=== PATIENT | female | born 1960 | race Hispanic/Latino ===

== ENCOUNTER → 2017-08-26 | Day surgery (SDC) | payer OTHER ==
[2017-08-24 13:39] LABS: ANION GAP 18.9 mmol/L (8-16); BLOOD UREA NITROGEN 11 mg/dL (7-26); BUN/CREATININE RATIO 15 (6-25); CALCIUM 10.2 mg/dL (8.4-10.2); CARBON DIOXIDE 25 mmol/L (22-29); CHLORIDE 99 mmol/L (98-107); CREATININE, SERUM 0.75 mg/dL (0.57-1.11); EST GLOMERULAR FILTRATION RATE > 60 ML/MIN (60-); GLUCOSE 126 mg/dL (74-118); POTASSIUM 3.9 mmol/L (3.5-5.1); SODIUM 139 mmol/L (136-145)
[~2017-08-26] MED LIST: ALPRAZOLAM0.25 M1 PO; ALPRAZOLAM0.5 M1; AMOXICILLIN500 MG PO; ATORVASTATIN CA10 MG PO; AZO95 MG PO; BELLADONNA/OPIUM 60 MG SUPP PR ONE; CLARITHROMYCIN500 MG PO; DEXAMETHASONE SOD PHOS INJ 4 MG/ML VIAL ONE; FENTANYL CITRATE/PF 100MCG/2 ML INJ ONE; HYDROCHLOROTHIA25 MG PO; IOPAMIDOL 610MG/1ML 300 MG/ML VIAL IV ONE; JANUVIA100 MG PO; LEVAQUIN500 MG PO; LEVOFLOXACIN 500MG/D5W 100ML 100 ML IV ONE; LEVOTHYROXINE50 MCG PO; LIDOCAINE HCL 2% LOCAL INJ 5 ML SDV VIAL INJ ONE; METFORMIN HCL500 MG PO; MIDAZOLAM HCL 2 MG/2 ML VIAL ONE; OMEPRAZOLE PO; ONDANSETRON HCL INJ 2 MG/ML VIAL ONE; PROPOFOL IV EMULSION 10 MG/ML 20 ML VIAL ONE; SEVOFLURANE INHAL SOLN 250 ML PEN BTL ONE; VASOTEC5 MG PO
--- NOTE | 2017-08-26 12:26 | Diagnostic Imaging Report ---
PROCEDURE:X-RAY ABDOMEN - KUB COMPARISON:KUB from 04/04/2017, abdominal CT from 06/22/2017. INDICATIONS:PRE-OP, RENAL STONE FINDINGS: A tiny calcification overlying the right inferior renal pole likely corresponds to a tiny nonobstructing stone on noncontrast CT from 06/22/2017. No new calcifications project over the renal shadows, expected course of the ureters or bladder. There is a non-obstructed bowel-gas pattern. There are no acute osseous abnormalities. The lung bases are clear. CONCLUSION: Tiny right inferior pole renal calculus. Dictated by: Ramon Miller M.D. on 08/26/2017 at 12:32 Electronically approved by: Ramon Miller M.D. on 08/26/2017 at 12:32
--- NOTE | 2017-10-04 00:50 | Operative Report ---
DATE OF PROCEDURE: August 26, 2017 PREOPERATIVE DIAGNOSES 1. Right nephrolithiasis. 2. Urinary tract infections. 3. Mixed-type urinary incontinence. POSTOPERATIVE DIAGNOSES 1. Right nephrolithiasis. 2. Urinary tract infections. 3. Mixed-type urinary incontinence. 4. Mild cystocele. 5. Severe rectocele. 6. Atrophic (senile) vaginitis. OPERATIONS PERFORMED: Note these were staged procedures as part of a multistage, multistep process of managing the patient's urolithiasis. 1. Right-sided extracorporeal shock wave lithotripsy (separate procedure performed to treat the right lower lateral kidney stone done from separate approach). 2. Cystourethroscopy with bilateral ureteral catheterization and retrograde ureterography (separate procedure performed for the urinary tract infections). 3. Interpretation of retrograde ureteropyelography. 4. Supervision of fluoroscopy. No radiologist present. 5. Pelvic examination under anesthesia. ANESTHESIA: General. COMPLICATIONS: None. CLINICAL SUMMARY: Tanisha Blanca is a 57-year-old woman with the above preoperative diagnoses. She is brought for the above procedures. She is aware of the risks of bleeding, infection, injury to adjacent structures, need for additional procedures and elected to proceed. OPERATIVE PROCEDURE IN DETAIL: Informed consent was verified. Tanisha Blanca was properly identified, taken to the operating room, placed on the lithotripsy table in supine position. Anesthesia was uneventfully begun. The patient's right lower calyceal stone was localized utilizing the biplanar fluoroscopy. A total of 3000 shocks were delivered with fragmentation noted fluoroscopically. The patient was then carefully and gently repositioned in the dorsal lithotomy position with all pressure points well padded. Her genitalia were prepared and draped in usual sterile fashion. The 22.5-Swiss cystoscope sheath with obturator in place was atraumatically inserted into the patient's urethra and the bladder was drained. Panendoscopy of the urinary bladder revealed no suspicious gross lesions, no tumors, no stones and no diverticula. Normally positioned and configured ureteral orifices were identified. Ureteral catheter was used to cannulate each ureter and retrograde ureteropyelography was performed. Interpretation of retrograde ureteropyelography: Contrast was instilled in retrograde fashion bilaterally. There were no tumors. There were no suspicious lesions. There were no diverticula. Some filling defects were noted in the right lower calyx that was lateral consistent with the lithotripsy procedure and the debris and blood clots it creates. Nevertheless, there was unobstructed drainage observed fluoroscopically from the right hand side. The patient's bladder was then drained. The cystoscope was withdrawn. Pelvic examination under anesthesia revealed a grade 1 cystocele and grade 4 rectocele. There was atrophic (senile) vaginitis present. No suspicious mucosal lesions were identified that could be obviously seen and there were no abnormal palpable pelvic masses that could be appreciated. The patient was then uneventfully reversed from anesthesia and taken to the recovery room in stable condition. There were no complications during the procedure. She tolerated the procedure well. Explicit postoperative instructions were given and we will follow the patient up in the office. Job#: [id number] GE cc:ZACHARY VALVERDE MD
== END | disposition home or self-care (01) ==
LOC: OR 10:52
PROVIDERS: ATTEND Urology
DX: N20.0 Calculus of kidney (principal); N39.46 Mixed incontinence; N39.0 Urinary tract infection, site not specified; N81.10 Cystocele, unspecified; N81.6 Rectocele; N95.2 Postmenopausal atrophic vaginitis; N32.81 Overactive bladder; R81 Glycosuria; E11.9 Type 2 diabetes mellitus without complications; I10 Essential (primary) hypertension; E03.9 Hypothyroidism, unspecified; K21.9 Gastro-esophageal reflux disease without esophagitis; E66.9 Obesity, unspecified; F41.9 Anxiety disorder, unspecified; Z01.810 Encounter for preprocedural cardiovascular examination; Z01.812 Encounter for preprocedural laboratory examination; Z68.33 Body mass index [BMI] 33.0-33.9, adult
CPT/HCPCS: 36415 ×2; 50590; 74000; 80048; 82948; 93005; C1758; J1100; J1956; J2001; J2250; J2405; Q9967

== ENCOUNTER 2017-11-05 17:49 | Emergency (ER) | payer OTHER ==
[~2017-11-05] VITALS: Ht 154.9 cm; Wt 74.8 kg
[~2017-11-05 17:49] MED LIST changes: -BELLADONNA/OPIUM 60 MG SUPP PR ONE; -DEXAMETHASONE SOD PHOS INJ 4 MG/ML VIAL ONE; -FENTANYL CITRATE/PF 100MCG/2 ML INJ ONE; -IOPAMIDOL 610MG/1ML 300 MG/ML VIAL IV ONE; -LEVOFLOXACIN 500MG/D5W 100ML 100 ML IV ONE; -LIDOCAINE HCL 2% LOCAL INJ 5 ML SDV VIAL INJ ONE; -MIDAZOLAM HCL 2 MG/2 ML VIAL ONE; -ONDANSETRON HCL INJ 2 MG/ML VIAL ONE; -PROPOFOL IV EMULSION 10 MG/ML 20 ML VIAL ONE; -SEVOFLURANE INHAL SOLN 250 ML PEN BTL ONE
[2017-11-05] MEDS ORDERED: SODIUM CHLORIDE 0.9% 1000ML 1,000 ML IV STA (18:37)
[2017-11-05] MEDS ORDERED: ONDANSETRON HCL INJ 2 MG/ML VIAL IV STA (18:37)
[2017-11-05] MEDS ORDERED: MORPHINE SULFATE 4 MG/ML SYR IV STA (18:37)
[2017-11-05 19:03] LABS: BILIRUBIN,URINE NEGATIVE (NEGATIVE); KETONES,URINE NEGATIVE (NEGATIVE); LEUKOCYTE ESTERASE ,URINE 2+ (NEGATIVE); NITRITE,URINE NEGATIVE (NEGATIVE); PROTEIN,URINE DIPSTICK NEGATIVE (NEGATIVE); URINE UROBILINOGEN 0.2 mg/dL (0.2 - 1)
[2017-11-05 19:06] LABS: CLARITY,URINE CLEAR (CLEAR); COLOR,URINE YELLOW (YELLOW)
[2017-11-05 19:33] LABS: EPITHELIAL CELLS,URINE MODERATE /LPF
[2017-11-05 19:34] LABS: RBC,URINE 0-5 /HPF (0-5)
[2017-11-05 19:35] LABS: BACTERIA,URINE RARE /HPF
--- NOTE | 2017-11-05 20:09 | Diagnostic Imaging Report ---
EXAMINATION: CHEST SINGLE (PORTABLE) INDICATION: Left chest pain COMPARISON: 06/16/2016 FINDINGS: TUBES and LINES: None. LUNGS: Lungs are well inflated. Lungs are clear. There is no evidence of pneumonia or pulmonary edema. PLEURA: No pleural effusion or pneumothorax. HEART AND MEDIASTINUM: The cardiomediastinal silhouette is unremarkable. BONES AND SOFT TISSUES: No acute osseous lesion. Soft tissues are unremarkable. UPPER ABDOMEN: No free air under the diaphragm. IMPRESSION: No acute thoracic abnormality. Signed by: Dr. Auugstin Colin M.D. on 11/05/2017 8:06 PM
[2017-11-05] MEDS ORDERED: SODIUM CHLORIDE 0.9% 1000ML 1,000 ML ONE (21:51)
--- NOTE | 2017-11-05 21:52 | Diagnostic Imaging Report ---
EXAM: Right Upper Quadrant Ultrasound INDICATION: Abdominal pain COMPARISON: None. TECHNIQUE: Transverse and longitudinal images of the right upper abdomen were obtained. FINDINGS: Liver: Size: 18.6 cm in the right midclavicular line, large Appearance: Increased echogenicity, smooth contour Mass: No focal masses Gallbladder: Stones/Sludge: None Wall: 0.2 cm Appearance: No wall thickening, pericholecystic fluid or hydrops. Sonographic Soto's Sign: Negative Bile Ducts: Intrahepatic Ducts: No dilatation Extrahepatic Ducts: Common bile duct measures 0.8 cm, prominent Pancreas: Visualized portions of the pancreatic head, neck and proximal body are normal. Kidneys: Length: Right 11.7 cm Echogenicity: Normal Collecting System: No hydronephrosis Stone: None Cyst/Mass: None Vessels: Aorta: Visualized portions are normal Inferior Vena Cava: Visualized portions are normal Main Portal Vein: 0.9 cm, normal size with hepatopetal flow. Free Fluid: No ascites or pleural effusion IMPRESSION: 1. Hepatomegaly and diffuse hepatic steatosis. 2. Prominent CBD measuring 0.8 cm. Correlation with bilirubin levels is recommended Signed by: Dr. Augustin Colin M.D. on 11/05/2017 9:49 PM
[2017-11-05] MEDS ORDERED: ONDANSETRON HCL INJ 2 MG/ML VIAL ONE (21:53)
[2017-11-05 22:09] LABS: BASOPHILS # (AUTO) 0.1 (0.0-0.1); BASOPHILS % 0.3 % (0.0-1.0); EOSINOPHILS # (AUTO) 0.5 (0.0-0.4); EOSINOPHILS % 3.3 % (0.0-6.0); HEMATOCRIT 44.9 % (34.2-44.1); HEMOGLOBIN 14.7 g/dL (12.0-16.0); LYMPHOCYTES # (AUTO) 4.3 (1.0-3.2); MEAN CORPUSCULAR HEMOGLOBIN 28.4 pg (28-32); MEAN CORPUSCULAR HGB CONC 32.7 g/dL (31-35); MEAN CORPUSCULAR VOLUME 86.7 fL (81-99); MONOCYTES % 6.6 % (4.4-11.3); NEUTROPHILS # (AUTO) 8.9 (2.1-6.9); NEUTROPHILS % 60.3 % (38.7-80.0); PLATELET COUNT 260 x10e3/uL (140-360); RED BLOOD COUNT 5.18 x10e6/uL (3.6-5.1); RED CELL DISTRIBUTION WIDTH 13.2 % (11.7-14.4)
[2017-11-05] MEDS ORDERED: CEFTRIAXONE SOD 1 GM VIAL IV ONE (22:15)
[2017-11-05 22:30] LABS: ALANINE AMINOTRANSFERASE 19 IU/L (0-55); ALBUMIN/GLOBULIN RATIO 1.2 (0.8-2.0); ALKALINE PHOSPHATASE 85 IU/L (40-150); AMYLASE 40 U/L (25-125); BLOOD UREA NITROGEN 10 mg/dL (7-26); BUN/CREATININE RATIO 16 (6-25); CALCIUM 9.3 mg/dL (8.4-10.2); CARBON DIOXIDE 20 mmol/L (22-29); CHLORIDE 105 mmol/L (98-107); CREATINE KINASE 41 IU/L (29-168); CREATININE, SERUM 0.61 mg/dL (0.57-1.11); EST GLOMERULAR FILTRATION RATE > 60 ML/MIN (60-); GLUCOSE 161 mg/dL (74-118); LIPASE 27 U/L (8-78); SODIUM 138 mmol/L (136-145)
--- NOTE | 2017-11-05 22:51 | Diagnostic Imaging Report ---
EXAM: CT Abdomen and Pelvis WITHOUT contrast INDICATION: Flank pain, suspicious for stone COMPARISON: 09/30/2017 TECHNIQUE: Abdomen and pelvis were scanned utilizing a multidetector helical scanner from the lung base to the pubic symphysis without administration of IV contrast. Absence of intravenous contrast decreases sensitivity for detection of focal lesions and vascular pathology. Coronal and sagittal reformations were obtained. Stone protocol is performed. IV CONTRAST: None. ORAL CONTRAST: None RADIATION DOSE: Total DLP: 575.83 mGy*cm Estimated effective dose: (DLP x 0.015 x size factor) mSv COMPLICATIONS: None FINDINGS: LINES and TUBES: None. LOWER THORAX: Unremarkable HEPATOBILIARY: No focal hepatic lesions. No biliary ductal dilation. GALLBLADDER: No radio-opaque stones or sludge. No wall thickening. SPLEEN: No splenomegaly. PANCREAS: No focal masses or ductal dilatation. ADRENALS: No adrenal nodules KIDNEYS/URETERS: No hydronephrosis. No cystic or solid mass lesions. Punctate calcific densities in the inferior pole of the right kidney best seen on series 2, image 44. The left renal collecting system appear unremarkable GI TRACT: No abnormal distention, wall thickening, or evidence of bowel obstruction. Appendix is not clearly identified. There is however no fat stranding or adenopathy in the right lower quadrant to suggest appendicitis. PELVIC ORGANS/BLADDER: Unremarkable. LYMPH NODES: No lymphadenopathy. VESSELS: Unremarkable. PERITONEUM / RETROPERITONEUM: No free air or fluid. BONES: There are mild degenerative changes in the thoracolumbar spine. SOFT TISSUES: Left breast nodule at approximately 6:00 medial inferior quadrant . IMPRESSION: 1. Punctate stones in the inferior renal collecting system of the right kidney. No hydronephrosis. These findings are stable since prior examination 2. Left breast nodule. Correlation with most recent mammogram and breast ultrasound is recommended Signed by: Dr. Augustin Colin M.D. on 11/05/2017 10:48 PM
[2017-11-06] MEDS ORDERED: MORPHINE SULFATE 5 MG/ML VIAL ONE (00:54)
== END 2017-11-06 02:11 | disposition home or self-care (01) ==
LOC: ER 17:49
DX: R10.13 Epigastric pain (principal); R10.12 Left upper quadrant pain; R07.89 Other chest pain; N30.90 Cystitis, unspecified without hematuria; N64.59 Other signs and symptoms in breast
CPT/HCPCS: 36415; 71010; 74176; 76705; 80053; 81001; 82150; 82550; 82553; 83690; 84484; 85025; 87086; 93005; 99284; J0696; J2270; J2405; J7030; 71045

== ENCOUNTER → 2017-11-28 | Outpatient (CLI) | payer OTHER ==
--- NOTE | 2017-11-28 13:05 | Diagnostic Imaging Report ---
PROCEDURE: X-RAY UPPER GI SERIES WITH SMALL BOWEL FOLLOW-THROUGH COMPARISON: None. INDICATIONS: UPPER ABDOMINAL PAIN FINDINGS: The patient was given air crystals, thick barium and thin barium to drink in upright and prone positions. Multiple images of the esophagus, stomach and duodenum were obtained. The patient was given additional barium to drink and sequential images of the abdomen were obtained through 2 hours. Spot images of the small bowel and terminal ileum were then obtained. The esophagus is normal in appearance without evidence of dysmotility, stricture or mucosal irregularity. There is gastroesophageal reflux. The stomach is normal without evidence of intrinsic mucosal or extrinsic abnormality. Duodenal bulb is normal. There is a moderate sized duodenal diverticulum from the second portion of the duodenum measuring 2.3 cm. Small bowel motility and caliber are normal. There is no evidence of mass or mucosal abnormality. The terminal ileum is normal. Fluoroscopy time: 2.6 minutes Total dose: 170.77 mGy CONCLUSION: 1. Mild amount of gastroesophageal reflux. 2. Moderate size duodenal diverticulum. 3. Small bowel follow-through is normal. Junior Durant D.O. Dictated by: Junior Durant D.O. on 11/28/2017 at 13:15 Electronically approved by: Junior Durant D.O. on 11/28/2017 at 13:15
== END ==
LOC: DX 07:20
PROVIDERS: ATTEND Internal Medicine Gastroenterology
DX: K59.00 Constipation, unspecified (principal)
CPT/HCPCS: 74249

== ENCOUNTER → 2018-02-09 | Outpatient (CLI) | payer OTHER ==
--- NOTE | 2018-02-09 14:45 | Diagnostic Imaging Report ---
PROCEDURE:X-RAY ABDOMEN - KUB COMPARISON:CT abdomen/pelvis 11/05/17. INDICATIONS:CALCULUS OF KIDNEY FINDINGS: Bowel gas pattern: Unremarkable. There is barium outlining a diverticulum in the descending colon. No dilated bowel loops. Calcifications: No calcifications over the renal shadows or along the expected course of the ureters. The punctate calculi in the lower pole left kidney on CT are not visible by x-ray. No pelvic calcifications. Organomegaly: None. Bones/soft tissues: Unremarkable. CONCLUSION: No renal calculi. Dictated by: Kermit Steven M.D. on 02/09/2018 at 14:46 Electronically approved by: Kermit Steven M.D. on 02/09/2018 at 14:46
== END ==
LOC: RAD 13:38
PROVIDERS: ATTEND Urology
DX: N20.0 Calculus of kidney (principal)
CPT/HCPCS: 74018

== ENCOUNTER → 2018-07-27 | Outpatient (CLI) | payer OTHER ==
--- NOTE | 2018-07-27 23:12 | Diagnostic Imaging Report ---
EXAM: ABDOMEN-1VIEW (KUB), supine INDICATION: Gross hematuria COMPARISON: KUB February 09, 2018 FINDINGS: LINES/TUBES: None BOWEL PATTERN: No evidence for obstruction. SOFT TISSUES: No abnormal calcifications. BONES: No acute findings. IMPRESSION: Normal abdominal x-ray. Signed by: Dr. Rosette Sterling M.D. on 07/27/2018 11:09 PM
== END ==
LOC: RAD 16:34
PROVIDERS: ATTEND Urology
DX: R31.0 Gross hematuria (principal)
CPT/HCPCS: 74018

== ENCOUNTER → 2018-08-11 | Day surgery (SDC) | payer OTHER ==
[2018-08-10 12:50] LABS: ANION GAP 13.7 mmol/L (8-16); BLOOD UREA NITROGEN 12 mg/dL (7-26); BUN/CREATININE RATIO 18 (6-25); CALCIUM 9.9 mg/dL (8.4-10.2); CARBON DIOXIDE 24 mmol/L (22-29); CHLORIDE 95 mmol/L (98-107); CREATININE, SERUM 0.68 mg/dL (0.57-1.11); EST GLOMERULAR FILTRATION RATE > 60 ML/MIN (60-); GLUCOSE 145 mg/dL (74-118); POTASSIUM 3.7 mmol/L (3.5-5.1); SODIUM 129 mmol/L (136-145)
[~2018-08-11] MED LIST changes: +BACTRIM DS TAB1 EACH PO; +BELLADONNA/OPIUM 60 MG SUPP PR ONE; +DEXAMETHASONE SOD PHOS INJ 4 MG/ML VIAL ONE; +FENTANYL CITRATE/PF 100MCG/2 ML INJ ONE; +GENTAMICIN 80MG/NS 100 ML 100 ML IV ONE; +IOPAMIDOL 610MG/1ML 300 MG/ML VIAL IV ONE; +LIDOCAINE HCL 2% LOCAL INJ 5 ML SDV VIAL INJ ONE; +MACROBID 100 M100 MG; +MIDAZOLAM HCL 2 MG/2 ML VIAL ONE; +ONDANSETRON HCL INJ 2 MG/ML VIAL ONE; +PROPOFOL IV EMULSION 10 MG/ML 20 ML VIAL ONE; +SEVOFLURANE INHAL SOLN 250 ML PEN BTL ONE
--- OUTSIDE RECORDS SUMMARY | 2018-08-11 08:02 | XMS REPORT ---
Author Author Yulia Carrington [facility] [place] eClinicalWorks Address Unknown Phone Unavailable Care Team Providers Care Water Treatment Operator Name Role Phone Yulia Carrington Unavailable Allergies, Adverse Reactions, Alerts Substance Reaction Event Type N.K.D.A. Info Not Available Non Drug Allergy Encounters Encounter Location Date allergies [facility], [facility] February 17, 2016 allergies [facility], [facility] January 14, 2014 Wants to see you [facility], [facility] February 09, 2016 allergies [facility], [facility] February 10, 2016 Problems Problem Type Condition ICD-9 Code Onset Dates Condition Status Problem Pruritus, unspecified L29.9 Active Assessment Rash and other nonspecific skin eruption R21 Active Problem Rash and other nonspecific skin eruption R21 Active Medications Medication Code System Code Instructions Start Date End Date Status Dosage Enalapril [facility] 50860-*188-03 5 mg orally daily Active one tab Montelukast Sodium [facility] [address]-62 10 MG Orally Once a day February 10, 2016 Active 1 tablet in the evening Alprazolam Unknown 0 0.25mg every 4 hours Active 1 Tablet Levothyroxine Unknown 0 50 mg Active Unknown Atorvastatin Calcium [facility] [address]-98 10 MG Orally Once a day Active 1 tablet Sandra Allergy [facility] 523[address]859 180 MG Orally Once OR TWICE a day February 10, 2016 Active 1 tablet Desoximetasone [facility] [address]-09 0.25 % Externally Once a day Active 1 application to affected area Cetirizine HCl [facility] [address]-12 10 MG Orally Once a day December 28, 2013 Active 1 tablet Metformin HCl [facility] [address]-94 500 MG Orally Twice a day Active 1 tablet with meals Social History Social History Element Qualifiers Date Reported Occupation/School (grade): . [employer] February 19, 2016 Type of chloe in bedroom . [employer] February 19, 2016 Window coverings in bedroom . Drapes, Wood blinds February 19, 2016 Home sliding door? . Yes February 19, 2016 Hobbies . Working Out,playing bingo February 19, 2016 HVAC . Central air and heat, Ceiling Fan or Box Fan February 19, 2016 Home water damage? . No February 19, 2016 Bedroom furniture: . Box spring mattress February 19, 2016 Age of your home: . 51-75 years February 19, 2016 Increased allergy sx: animals? . No February 19, 2016 Pets: . none February 19, 2016 Secondary tobacco exposure? . No February 19, 2016 Tobacco Use: . Are you a:: never smoker February 19, 2016 Vital Signs Date/Time: February 17, 2016 Blood Pressure Diastolic 83 mm Hg Blood Pressure Systolic 124 mm Hg Temperature 97.5 F Height 60.45 in Cardiac Monitoring Heart Rate 81 /min Summary Purpose eClinicalWorks Submission
--- OUTSIDE RECORDS SUMMARY | 2018-08-11 08:02 | XMS REPORT ---
Author Author Yulia Carrington eClinicalWorks Address Unknown Phone Unavailable Care Team Providers Care Hasher Machine Operator Name Role Phone Yulia Carrington Unavailable Allergies, Adverse Reactions, Alerts Substance Reaction Event Type N.K.D.A. Info Not Available Non Drug Allergy Encounters Encounter Location Date allergies [facility], [facility] February 17, 2016 Swelling [facility], [facility] March 08, 2016 allergies [facility], [facility] March 08, 2016 Skin concerns [facility], [facility] February 24, 2016 allergies [facility], [facility] January 14, 2014 Wants to see you [facility], [facility] February 09, 2016 allergies [facility], [facility] February 10, 2016 allergies [facility], [facility] February 19, 2016 Problems Problem Type Condition ICD-9 Code Onset Dates Condition Status Problem Pruritus, unspecified L29.9 Active Assessment Rash and other nonspecific skin eruption R21 Active Problem Rash and other nonspecific skin eruption R21 Active Medications Medication Code System Code Instructions Start Date End Date Status Dosage Montelukast Sodium [facility] [address]-56 10 MG Orally Once a day February 10, 2016 Active 1 tablet in the evening Metformin HCl [facility] [address]-88 500 MG Orally Twice a day Active 1 tablet with meals Desoximetasone [facility] [address]-25 0.25 % Externally Once a day Active 1 application to affected area Levothyroxine Unknown 0 50 mg Active Unknown Enalapril [facility] 21666-*188-03 5 mg orally daily Active one tab Cetirizine HCl [facility] [address]-14 10 MG Orally Once a day December 28, 2013 Active 1 tablet Sandra Allergy [facility] 45608-[address]776 180 MG Orally Once OR TWICE a day February 10, 2016 Active 1 tablet Atorvastatin Calcium [facility] [address]-56 10 MG Orally Once a day Active 1 tablet Alprazolam Unknown 0 0.25mg every 4 hours Active 1 Tablet Social History Social History Element Qualifiers Date Reported 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 [employer] March 08, 2016 Window coverings in bedroom . Drapes, Wood blinds March 08, 2016 Home sliding door? . Yes March 08, 2016 Hobbies . Working Out,playing bingo March 08, 2016 HVAC . Central air and heat, Ceiling Fan or Box Fan March 08, 2016 Home water damage? . No March 08, 2016 Bedroom furniture: . Box spring mattress March 08, 2016 Age of your home: . 51-75 years March 08, 2016 Increased allergy sx: animals? . No March 08, 2016 Pets: . none March 08, 2016 Secondary tobacco exposure? . No March 08, 2016 Tobacco Use: . Are you a:: never smoker March 08, 2016 Vital Signs Date/Time: February 19, 2016 Blood Pressure Diastolic 88 mm Hg Blood Pressure Systolic 128 mm Hg Temperature 98.0 F Cardiac Monitoring Heart Rate 91 /min Summary Purpose eClinicalWorks Submission
--- OUTSIDE RECORDS SUMMARY | 2018-08-11 08:02 | XMS REPORT ---
Author Author Celestina Tadeo Organization eClinicalWorks Address Unknown Phone Unavailable Care Team Providers Care Technical Research Scientist Name Role Phone Celestina Tadeo CP Unavailable Allergies No Known Allergies Problems Problem Type Condition Code Onset Dates Condition Status Problem Vitamin D deficiency E55.9 Active Problem Pain in right hand M79.641 Active Problem Osteoarthritis involving multiple joints on both sides of body M15.9 Active Problem Diabetes E11.9 Active Problem Vitamin D deficiency 268.9 Active Problem Hypertension I10 Active Medications No Known Medications Results No Known Results Summary Purpose eClinicalWorks Submission
--- OUTSIDE RECORDS SUMMARY | 2018-08-11 08:02 | XMS REPORT ---
Author Author Yulia Carrington eClinicalWorks Address Unknown Phone Unavailable Care Team Providers Care Ultrasonic Hand Solderer Name Role Phone Yulia Carrington Unavailable Allergies, Adverse Reactions, Alerts Substance Reaction Event Type Bacitracin erythema and dry skin: contact allergy Drug Allergy Encounters Encounter Location Date allergies [facility], [facility] February 17, 2016 Swelling [facility], [facility] March 08, 2016 allergies [facility], [facility] March 08, 2016 allergies [facility], [facility] January 14, 2014 Wants to see you [facility], [facility] February 09, 2016 allergies [facility], [facility] February 10, 2016 Problems Problem Type Condition ICD-9 Code Onset Dates Condition Status Problem Rash and other nonspecific skin eruption R21 Active Problem Pruritus, unspecified L29.9 Active Problem Anaphylactic reaction due to shellfish (crustaceans), initial encounter T78.02XA Active Assessment Anaphylactic reaction due to shellfish (crustaceans), initial encounter T78.02XA Active Medications Medication Code System Code Instructions Start Date End Date Status Dosage Metformin HCl [facility] [address]-90 500 MG Orally Twice a day Active 1 tablet with meals Alprazolam Unknown 0 0.25mg every 4 hours Active 1 Tablet Desoximetasone [facility] [address]-94 0.25 % Externally Once a day Active 1 application to affected area Sandra Allergy [facility] 508[address]84 180 MG Orally Once OR TWICE a day February 10, 2016 Active 1 tablet Benadryl Allergy Childrens [facility] [address]-79 12.5 MG/5ML Orally every 6 hrs as needed March 08, 2016 Active 4 teaspoons Enalapril [facility] 82628-*188-03 5 mg orally daily Active one tab Levothyroxine Unknown 0 50 mg Active Unknown EpiPen 2-Olegario [facility] [address]-49 0.3 MG/0.3ML Injection March 08, 2016 Active as directed Cetirizine HCl [facility] [address]-94 10 MG Orally Once a day December 28, 2013 Active 1 tablet Montelukast Sodium [facility] [address]-86 10 MG Orally Once a day February 10, 2016 Active 1 tablet in the evening Medrol (Olegario) [facility] [address]-79 4 MG Orally March 08, 2016 Active as directed Atorvastatin Calcium [facility] [address]-35 10 MG Orally Once a day Active 1 tablet Social History Social History Element Qualifiers Date [...] smoker March 08, 2016 Vital Signs Date/Time: March 08, 2016 Blood Pressure Systolic 130 mm Hg Temperature 98.4 F Height 60.45 in Cardiac Monitoring Heart Rate 71 /min Blood Pressure Diastolic 83 mm Hg Summary Purpose eClinicalWorks Submission
--- OUTSIDE RECORDS SUMMARY | 2018-08-11 08:02 | XMS REPORT ---
Author Author Yulia Carrington [facility] eClinicalWorks Address Unknown Phone Unavailable Care Team Providers Care Civil Engineer Land Development Name Role Phone Yulia Carrington Unavailable Allergies, Adverse Reactions, Alerts Substance Reaction Event Type N.K.D.A. Info Not Available Non Drug Allergy Encounters Encounter Location Date allergies [facility], [facility] January 14, 2014 Wants to see you [facility], [facility] February 09, 2016 [facility] February 10, 2016 Problems Problem Type Condition ICD-9 Code Onset Dates Condition Status Problem Pruritus, unspecified L29.9 Active Assessment Rash and other nonspecific skin eruption R21 Active Problem Rash and other nonspecific skin eruption R21 Active Assessment Pruritus, unspecified L29.9 Active Medications Medication Code System Code Instructions Start Date End Date Status Dosage Montelukast Sodium [facility] [address]-42 10 MG Orally Once a day February 10, 2016 Active 1 tablet in the evening Atorvastatin Calcium [facility] [address]-29 10 MG Orally Once a day Active 1 tablet Metformin HCl [facility] [address]-82 500 MG Orally Twice a day Active 1 tablet with meals Levothyroxine Unknown 0 50 mg Active Unknown Cetirizine HCl [facility] [address]-00 10 MG Orally Once a day December 28, 2013 Active 1 tablet Desoximetasone [facility] [address]-87 0.25 % Externally Once a day Active 1 application to affected area Enalapril [facility] 59301-*188-03 5 mg orally daily Active one tab Alprazolam Unknown 0 0.25mg every 4 hours Active 1 Tablet Sandra Allergy [facility] 64343-44655 180 MG Orally Once OR TWICE a day February 10, 2016 Active 1 tablet Social History Social History Element Qualifiers Date Reported Occupation/School (grade): . [employer] February 11, 2016 Type of chloe in bedroom . [employer] February 11, 2016 Window coverings in bedroom . Drapes, Wood blinds February 11, 2016 Home sliding door? . Yes February 11, 2016 Hobbies . Working Out,playing bingo February 11, 2016 HVAC . Central air and heat, Ceiling Fan or Box Fan February 11, 2016 Home water damage? . No February 11, 2016 Bedroom furniture: . Box spring mattress February 11, 2016 Age of your home: . 51-75 years February 11, 2016 Increased allergy sx: animals? . No February 11, 2016 Pets: . none February 11, 2016 Secondary tobacco exposure? . No February 11, 2016 Tobacco Use: . Are you a:: never smoker February 11, 2016 Vital Signs Date/Time: February 10, 2016 Blood Pressure Systolic 126 mm Hg Temperature 98.7 F Height 59.67 in Cardiac Monitoring Heart Rate 78 /min Blood Pressure Diastolic 80 mm Hg Summary Purpose eClinicalWorks Submission
--- OUTSIDE RECORDS SUMMARY | 2018-08-11 08:02 | XMS REPORT ---
Author Author Yulia Carrington [facility] eClinicalWorks Address Unknown Phone Unavailable Care Team Providers Care First Front Ventilator Name Role Phone Yulia Carrington Unavailable Encounters Encounter Location Date allergies [facility], [facility] January 14, 2014 Wants to see you [facility], [facility] February 09, 2016 Problems Problem Type Condition ICD-9 Code Onset Dates Condition Status Problem Urticartia-unspecified 708.9 Active Problem Rhinitis - Chronic 472.0 Active Problem pruritic disorder 698.9 Active Problem food allergy 693.1 Active Problem Hypothyroidism 244.9 Active Problem Diabetes 249.00 Active Social History Social History Element Qualifiers Date Reported Occupation/School (grade): . [employer] January 14, 2014 Type of chloe in bedroom . Hardwood January 14, 2014 Window coverings in bedroom . Drapes, Wood blinds January 14, 2014 Home sliding door? . Yes January 14, 2014 Hobbies . Working Out,playing bingo January 14, 2014 HVAC . Central air and heat, Ceiling Fan or Box Fan January 14, 2014 Home water damage? . No January 14, 2014 Bedroom furniture: . Box spring mattress January 14, 2014 Age of your home: . 51-75 years January 14, 2014 Increased allergy sx: animals? . No January 14, 2014 Pets: . none January 14, 2014 Secondary tobacco exposure? . No January 14, 2014 Tobacco Use: . Are you a:: never smoker January 14, 2014 Summary Purpose eClinicalWorks Submission
--- OUTSIDE RECORDS SUMMARY | 2018-08-11 08:02 | XMS REPORT ---
Author Author Yulia Carrintgon [facility] eClinicalWorks Address Unknown Phone Unavailable Care Team Providers Care Physiology Teacher Name Role Phone Yulia Carrington Unavailable Encounters [facility] Problems Problem Type Condition ICD-9 Code Onset Dates Condition Status Assessment food allergy 693.1 Active Problem Urticartia-unspecified 708.9 Active Problem Rhinitis - Chronic 472.0 Active Problem pruritic disorder 698.9 Active Problem food allergy 693.1 Active Assessment Urticartia-unspecified 708.9 Active Problem Hypothyroidism 244.9 Active Problem Diabetes 249.00 Active Medications Medication Code System Code Instructions Start Date End Date Status Dosage Atorvastatin Calcium [facility] [address]-60 10 MG Orally Once a day Active 1 tablet Desoximetasone [facility] [address]-17 0.25 % Externally Once a day Active 1 application to affected area Metformin HCl [facility] [address]-18 500 MG Orally Twice a day Active 1 tablet with meals Cetirizine HCl [facility] [address]-81 10 MG Orally Once a day December 28, 2013 Active 1 tablet Social History Social History Element Qualifiers Date Reported 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 Hardwood December 28, 2013 Window coverings in bedroom . Drapes, Wood blinds December 28, 2013 Home sliding door? . Yes December 28, 2013 Hobbies . Working Out,playing bingo December 28, 2013 HVAC . Central air and heat, Ceiling Fan or Box Fan December 28, 2013 Home water damage? . No December 28, 2013 Bedroom furniture: . Box spring mattress December 28, 2013 Age of your home: . 51-75 years December 28, 2013 Increased allergy sx: animals? . No December 28, 2013 Pets: . none December 28, 2013 Secondary tobacco exposure? . No December 28, 2013 Tobacco Use: . Are you a:: never smoker December 28, 2013 Vital Signs Date/Time: January 14, 2014 Blood Pressure Systolic 126 mm Hg Temperature 97.6 F Weight 84.09 lbs Height 60.45 inches Cardiac Monitoring Heart Rate 78 Beats per Minute Blood Pressure Diastolic 78 mm Hg Summary Purpose eClinicalWorks Submission
--- OUTSIDE RECORDS SUMMARY | 2018-08-11 08:02 | XMS REPORT ---
Author Author Yulia Carrington [facility] eClinicalWorks Address Unknown Phone Unavailable Care Team Providers Care Debt Counselor Name Role Phone Yulia Carrington Unavailable Encounters Encounter Location Date allergies [facility], [facility] February 17, 2016 Swelling [facility], [facility] March 08, 2016 allergies [facility], [facility] January 14, 2014 Wants to see you [facility], [facility] February 09, 2016 allergies [facility], [facility] February 10, 2016 Problems Problem Type Condition ICD-9 Code Onset Dates Condition Status Problem Rash and other nonspecific skin eruption R21 Active Problem Pruritus, unspecified L29.9 Active Problem Anaphylactic reaction due to shellfish (crustaceans), initial encounter T78.02XA Active Social History Social History Element Qualifiers [...] you a:: never smoker March 08, 2016 Summary Purpose eClinicalWorks Submission
--- OUTSIDE RECORDS SUMMARY | 2018-08-11 08:02 | XMS REPORT ---
Author Author Yulia Carrington eClinicalWorks Address Unknown Phone Unavailable Care Team Providers Care Job Recruiter Name Role Phone Yulia Carrington Unavailable Allergies, Adverse Reactions, Alerts Substance Reaction Event Type Bacitracin erythema and dry skin: contact allergy Drug Allergy Encounters Encounter Location Date allergies [facility], [facility] February 17, 2016 Swelling [facility], [facility] March 08, 2016 allergies [facility], [facility] March 08, 2016 Skin concerns [facility], [facility] February 24, 2016 allergies [facility], [facility] January 14, 2014 Wants to see you [facility], [facility] February 09, 2016 allergies [facility], [facility] February 10, 2016 allergies [facility], [facility] March 22, 2016 allergies [facility], [facility] February 19, 2016 Waiting for call back [facility], [facility] March 11, 2016 Problems Problem Type Condition ICD-9 Code Onset Dates Condition Status Assessment Other allergic rhinitis J30.89 Active Assessment Allergic contact dermatitis due to cosmetics L23.2 Active Assessment Anaphylactic reaction due to shellfish (crustaceans), subsequent encounter T78.02XD Active Problem Allergic contact dermatitis due to cosmetics L23.2 Active Problem Anaphylactic reaction due to shellfish (crustaceans), subsequent encounter T78.02XD Active Problem Allergic contact dermatitis due to drugs in contact with skin L23.3 Active Problem Pruritus, unspecified L29.9 Active Assessment Allergic contact dermatitis due to drugs in contact with skin L23.3 Active Problem Anaphylactic reaction due to shellfish (crustaceans), initial encounter T78.02XA Active Problem Rash and other nonspecific skin eruption R21 Active Medications Medication Code System Code Instructions Start Date End Date Status Dosage Benadryl [facility] [address]-86 12.5 MG/5ML Orally every 6 hrs as needed March 08, 2016 Active 4 teaspoons Cetirizine HCl [facility] [address]-10 10 MG Orally Once a day December 28, 2013 March 22, 2016 Inactive 1 tablet Levothyroxine Unknown 0 50 mg Active Unknown Enalapril [facility] 10674-*188-03 5 mg orally daily Active one tab Medrol (Olegario) [facility] [address]-40 4 MG Orally March 08, 2016 March 22, 2016 Inactive as directed Sandra Allergy [facility] [address]106 180 MG Orally Once OR TWICE a day February 10, 2016 Active 1 tablet Desoximetasone [facility] [address]-98 0.25 % Externally Once a day March 22, 2016 Inactive 1 application to affected area Atorvastatin Calcium [facility] [address]-57 10 MG Orally Once a day Active 1 tablet Metformin HCl [facility] [address]-40 500 MG Orally Twice a day Active 1 tablet with meals Alprazolam Unknown 0 0.25mg every 4 hours Active 1 Tablet EpiPen 2-Olegario [facility] [address]-55 0.3 MG/0.3ML Injection March 08, 2016 Active as directed Montelukast Sodium [facility] [address]-32 10 MG Orally Once a day February 10, 2016 Active 1 tablet in the evening Social History Social History Element Qualifiers Date Reported 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 [employer] March 22, 2016 Window coverings in bedroom . Drapes, Wood blinds March 22, 2016 Home sliding door? . Yes March 22, 2016 Hobbies . Working Out,playing bingo March 22, 2016 HVAC . Central air and heat, Ceiling Fan or Box Fan March 22, 2016 Home water damage? . No March 22, 2016 Bedroom furniture: . Box spring mattress March 22, 2016 Age of your home: . 51-75 years March 22, 2016 Increased allergy sx: animals? . No March 22, 2016 Pets: . none March 22, 2016 Secondary tobacco exposure? . No March 22, 2016 Tobacco Use: . Are you a:: never smoker March 22, 2016 Vital Signs Date/Time: March 22, 2016 Blood Pressure Diastolic 75 mm Hg Blood Pressure Systolic 120 mm Hg Temperature 97.7 F Height 60.45 in Cardiac Monitoring Heart Rate 65 /min Summary Purpose eClinicalWorks Submission
--- OUTSIDE RECORDS SUMMARY | 2018-08-11 08:02 | XMS REPORT ---
Author Author Yulia Carrington [facility] eClinicalWorks Address Unknown Phone Unavailable Care Team Providers Care Folding Rules Printing Machine Operator Name Role Phone Yulia Carrington Unavailable Encounters Encounter Location Date allergies [facility], [facility] February 17, 2016 Swelling [facility], [facility] March 08, 2016 allergies [facility], [facility] March 08, 2016 Skin concerns [facility], [facility] February 24, 2016 allergies [facility], [facility] January 14, 2014 Wants to see you [facility], [facility] February 09, 2016 allergies [facility], [facility] February 10, 2016 allergies [facility], [facility] February 19, 2016 Waiting for call back [facility], [facility] March 11, 2016 Problems Problem Type Condition [...]
--- OUTSIDE RECORDS SUMMARY | 2018-08-11 08:02 | XMS REPORT ---
Author Author Yulia Carrington eClinicalWorks Address Unknown Phone Unavailable Care Team Providers Care Php Consultant Name Role Phone Yulia Carrington Unavailable Encounters Encounter Location Date allergies [facility], [facility] February 17, 2016 Swelling [facility], [facility] March 08, 2016 allergies [facility], [facility] March 08, 2016 Skin concerns [facility], [facility] February 24, 2016 allergies [facility], [facility] January 14, 2014 Other [facility], [facility] March 22, 2016 Wants to see you [facility], [facility] February 09, 2016 allergies [facility], [facility] February 10, 2016 allergies [facility], [facility] March 22, 2016 allergies [facility], [facility] February 19, 2016 Waiting for call back [facility], [facility] March 11, 2016 Problems Problem Type Condition ICD-9 Code Onset Dates Condition Status Problem Allergic contact dermatitis due to cosmetics L23.2 Active Problem Anaphylactic reaction due to shellfish (crustaceans), subsequent encounter T78.02XD Active Problem Allergic contact dermatitis due to drugs in contact with skin L23.3 Active Problem Pruritus, unspecified L29.9 Active Problem Anaphylactic reaction due to shellfish (crustaceans), initial encounter T78.02XA Active Problem Rash and other nonspecific skin eruption R21 Active Social History Social History Element Qualifiers [...] you a:: never smoker March 22, 2016 Summary Purpose eClinicalWorks Submission
--- OUTSIDE RECORDS SUMMARY | 2018-08-11 08:02 | XMS REPORT ---
Author Author Celestina Tadeo Organization eClinicalWorks Address Unknown Phone Unavailable Care Team Providers Care Transportation Technician Name Role Phone Celestina Tadeo CP Unavailable Allergies, Adverse Reactions, Alerts Substance Reaction Event Type N.K.D.A. Info Not Available Non Drug Allergy Problems Problem Type Condition Code Onset Dates Condition Status Assessment Sicca M35.00 Active Assessment Osteoarthritis involving multiple joints on both sides of body M15.9 Active Assessment Vitamin D deficiency E55.9 Active Assessment Counseling NOS Z71.9 Active Problem Vitamin D deficiency E55.9 Active Problem Pain in right hand M79.641 Active Problem Osteoarthritis involving multiple joints on both sides of body M15.9 Active Problem Diabetes E11.9 Active Assessment Right medial knee pain M25.561 Active Problem Vitamin D deficiency 268.9 Active Problem Hypertension I10 Active Medications Medication Code System Code Instructions Start Date End Date Status Dosage Vivlodex ND 95422709794 10 MG Orally Once a day prn with food Active 1 capsule Metformin HCl ND 62471026488 500 MG Orally Twice a day Active 1 tablet with meals Meloxicam ND 03395654952 7.5 MG Orally bid Active 1 tab(s) with food as needed Ergocalciferol ND 30154192038 11427 UNIT Orally once weekly Active 1 capsule Alprazolam ND 38343839477 0.25 MG Orally Three times a day Active 1 tablet Enalapril Maleate ND 70957376539 5 MG Orally Active not defined Levothyroxine Sodium ND 32282806827 50 MCG Orally Once a day Active 1 tablet Atorvastatin Calcium ND 61948500259 10 MG Orally Once a day Active 1 tablet Vitamin D (Ergocalciferol) [facility] 80229451796 50,000UNT Active TAKE ONE CAPSULE BY MOUTH ONCE A WEEK Vital Signs Date/Time: Jun 05, 2018 Height 61 in Blood Pressure Diastolic 78 mm Hg Blood Pressure Systolic 134 mm Hg Weight 165 lbs Results No Known Results Summary Purpose eClinicalWorks Submission
--- OUTSIDE RECORDS SUMMARY | 2018-08-11 08:02 | XMS REPORT ---
Author Author Yulia Carrington eClinicalWorks Address Unknown Phone Unavailable Care Team Providers Care Physiotherapist'S Assistant Name Role Phone Yulia Carrington Unavailable Allergies, Adverse Reactions, Alerts Substance Reaction Event Type N.K.D.A. Info Not Available Non Drug Allergy Encounters Encounter Location Date allergies [facility], [facility] February 17, 2016 Swelling [facility], [facility] March 08, 2016 allergies [facility], [facility] March 08, 2016 Skin concerns [facility], [facility] February 24, 2016 allergies [facility], [facility] January 14, 2014 Wants to see you [facility], [facility] February 09, 2016 allergies [facility], [facility] February 10, 2016 allergies [facility], [facility] February 19, 2016 Problems Problem Type Condition ICD-9 Code Onset Dates Condition Status Problem Pruritus, unspecified L29.9 Active Assessment Rash and other nonspecific skin eruption R21 Active Problem Rash and other nonspecific skin eruption R21 Active Medications Medication Code System Code Instructions Start Date End Date Status Dosage Metformin HCl [facility] [address]-87 500 MG Orally Twice a day Active 1 tablet with meals Sandra Allergy [facility] [address]99 180 MG Orally Once OR TWICE a day February 10, 2016 Active 1 tablet Montelukast Sodium [facility] [address]-85 10 MG Orally Once a day February 10, 2016 Active 1 tablet in the evening Levothyroxine Unknown 0 50 mg Active Unknown Atorvastatin Calcium [facility] [address]-03 10 MG Orally Once a day Active 1 tablet Desoximetasone [facility] [address]-27 0.25 % Externally Once a day Active 1 application to affected area Cetirizine HCl [facility] [address]-50 10 MG Orally Once a day December 28, 2013 Active 1 tablet Alprazolam Unknown 0 0.25mg every 4 hours Active 1 Tablet Enalapril [facility] 26747-*188-03 5 mg orally daily Active one tab Social History Social History Element Qualifiers Date [...] March 08, 2016 Vital Signs Date/Time: February 24, 2016 Blood Pressure Systolic 116 mm Hg Temperature 97.5 F Height 60.45 in Cardiac Monitoring Heart Rate 86 /min Blood Pressure Diastolic 78 mm Hg Summary Purpose eClinicalWorks Submission
--- OUTSIDE RECORDS SUMMARY | 2018-08-11 08:02 | XMS REPORT | Continuity of Care Document ---
Author Author [facility] Interface Address Unknown Phone Unavailable Problems Problem Status Onset Date Classification Date Reported Comments Source Vitamin D deficiency Active Diagnosis 06/08/2018 Celest[facility] Tadeo Pain in right hand Active Problem 06/08/2018 Celestina Tadeo Osteoarthritis involving multiple joints on both sides of body Active Diagnosis 06/08/2018 Celest[facility] Tadeo Diabetes Active Problem 06/08/2018 Cel[facility]ina Tadeo Vitamin D deficiency Active Problem 06/08/2018 Celestina Tadeo Hypertension Active Problem 06/08/2018 Celestina Tadeo Urticartia-unspecified Active Problem 02/10/2016 [facility] Rhinitis - Chronic Active Problem 02/10/2016 [facility] pruritic disorder Active Problem 02/10/2016 [facility] food allergy Active Problem 02/10/2016 [facility] Hypothyroidism Active Problem 02/10/2016 [facility] Diabetes Active Problem 02/10/2016 [facility] Rash and other nonspecific skin eruption Active Problem 04/09/2016 [facility] Pruritus, unspecified Active Problem 04/09/2016 [facility] Anaphylactic reaction due to shellfish , initial encounter Active Problem 04/09/2016 [facility] Sicca Active Diagnosis 06/08/2018 Celestina Tadeo Counseling NOS Active Diagnosis 06/08/2018 Celestina Tadeo Right medial knee pain Active Diagnosis 06/08/2018 Celestina Tadeo Allergic contact dermatitis due to drugs in contact with skin Active Problem 04/09/2016 [facility] Allergic contact dermatitis due to cosmetics Active Problem 04/09/2016 [facility] Unspecified adverse effect of drug or medicament, initial encounter Active Diagnosis 04/09/2016 [facility] Anaphylactic reaction due to shellfish , subsequent encounter Active Problem 04/09/2016 [facility] Other allergic rhinitis Active Diagnosis 03/23/2016 [facility] Medications Medication Details Route Status Patient Instructions Ordering Provider Order Date Source Desoximetasone 1 application to affected area Externally No Longer Active 0.25 % Externally Once a day [facility] 03/22/2016 [facility] Benadryl Allergy Childrens 4 teaspoons Orally Active 12.5 MG/5ML Orally every 6 hrs as needed [facility] 03/08/2016 [facility] EpiPen 2-Olegario as directed Injection Active 0.3 MG/0.3ML Injection [facility] 03/08/2016 [facility] Medrol (Olegario) as directed Orally No Longer Active 4 MG Orally [facility] 03/08/2016 [facility] Sandra Allergy 1 tablet Orally Active 180 MG Orally Once OR TWICE a day [facility] 02/10/2016 [facility] Montelukast Sodium 1 tablet in the evening Orally Active 10 MG Orally Once a day [facility] 02/10/2016 [facility] Cetirizine HCl 1 tablet Orally No Longer Active 10 MG Orally Once a day [facility] 12/28/2013 [facility] Cetirizine HCl 1 tablet Orally Active 10 MG Orally Once a day [facility] 12/28/2013 [facility] Metformin HCl 1 tablet with meals Orally Active 500 MG Orally Twice a day [facility] Alprazolam 1 Tablet NA Active 0.25mg every 4 hours [facility] Desoximetasone 1 application to affected area Externally Active 0.25 % Externally Once a day [facility] Enalapril one tab orally Active 5 mg orally daily [facility] Levothyroxine Unknown NA Active 50 mg [facility] Atorvastatin Calcium 1 tablet Orally Active 10 MG Orally Once a day [facility] Desoximetasone 1 application to affected area Externally Active 0.25 % Externally Once a day [facility] Vivlodex 1 capsule Orally Active 10 MG Orally Once a day prn with food Najam Celestina Najam Metformin HCl 1 tablet with meals Orally Active 500 MG Orally Twice a day Najam Celestina Najam Meloxicam 1 tab(s) with food as needed Orally Active 7.5 MG Orally bid Najam Celestina Najam Ergocalciferol 1 capsule Orally Active 51490 UNIT Orally once weekly Najam Celestina Najam Alprazolam 1 tablet Orally Active 0.25 MG Orally Three times a day Najam Celestnia Najam Enalapril Maleate not defined Orally Active 5 MG Orally Shwetha Tadeo Levothyroxine Sodium 1 tablet Orally Active 50 MCG Orally Once a day Shwetha Tadeo Atorvastatin Calcium 1 tablet Orally Active 10 MG Orally Once a day Shwetha Tadeo Vitamin D (Ergocalciferol) TAKE ONE CAPSULE BY MOUTH ONCE A WEEK NA Active 50,000UNT Shwetha Tadeo HydrOXYzine HCl 1 tablet as needed Orally Active 25 MG Orally every 8 hrs [facility] Allergies, Adverse Reactions, Alerts Substance Category Reaction Severity Reaction type Status Date Reported Comments Source Bacitracin Adverse Reaction erythema and dry skin: contact allergy Adverse Reaction Active 04/01/2016 [facility] Adverse Reaction Info Not Available Adverse Reaction Active 06/05/2018 [facility] Nasalenam Immunizations Immunization Date Given Site Status Last Updated Comments Source Results Order Name Results Value Reference Range Date Interpretation Comments Source Vital Signs Vital Sign Value Date Comments Source Height 61 06/05/2018 Celestina Najam Diastolic (mm Hg) 78 06/05/2018 [facility] Najam Systolic (mm Hg) 134 06/05/2018 [facility] Najam Weight 165 06/05/2018 [facility] Najam Diastolic (mm Hg) 69 04/01/2016 [facility] Systolic (mm Hg) 104 04/01/2016 [facility] Temperature Oral (F) 97.5 F 04/01/2016 [facility] Height 60.45 04/01/2016 [facility] Heart Rate 82 04/01/2016 [facility] Diastolic (mm Hg) 75 03/22/2016 [facility] Systolic (mm Hg) 120 03/22/2016 [facility] Temperature Oral (F) 97.7 F 03/22/2016 [facility] Height 60.45 03/22/2016 [facility] Heart Rate 65 03/22/2016 [facility] Systolic (mm Hg) 130 03/08/2016 [facility] Temperature Oral (F) 98.4 F 03/08/2016 [facility] Height 60.45 03/08/2016 [facility] Heart Rate 71 03/08/2016 [facility] Diastolic (mm Hg) 83 03/08/2016 [facility] Systolic (mm Hg) 116 02/24/2016 [facility] Temperature Oral (F) 97.5 F 02/24/2016 [facility] Height 60.45 02/24/2016 [facility] Heart Rate 86 02/24/2016 [facility] Diastolic (mm Hg) 78 02/24/2016 [facility] Diastolic (mm Hg) 88 02/19/2016 [facility] Systolic (mm Hg) 128 02/19/2016 [facility] Temperature Oral (F) 98.0 F 02/19/2016 [facility] Heart Rate 91 02/19/2016 [facility] Diastolic (mm Hg) 83 02/17/2016 [facility] Systolic (mm Hg) 124 02/17/2016 [facility] Temperature Oral (F) 97.5 F 02/17/2016 [facility] Height 60.45 02/17/2016 [facility] Heart Rate 81 02/17/2016 [facility] Systolic (mm Hg) 126 02/10/2016 [facility] Temperature Oral (F) 98.7 F 02/10/2016 [facility] Height 59.67 02/10/2016 [facility] Heart Rate 78 02/10/2016 [facility] Diastolic (mm Hg) 80 02/10/2016 [facility] Systolic (mm Hg) 126 01/14/2014 [facility] Temperature Oral (F) 97.6 F 01/14/2014 [facility] Weight 84.09 01/14/2014 [facility] Height 60.45 01/14/2014 [facility] Heart Rate 78 01/14/2014 [facility] Diastolic (mm Hg) 78 01/14/2014 [facility] Encounters Location Location Details Encounter Type Encounter Number Reason For Visit Attending Provider ADM Date DC Date Status Source [facility], [facility] allergies [id number] 01/14/2014 01/14/2014 [facility] allergies [id number] 01/14/2014 01/14/2014 [facility] allergies [id number] 01/14/2014 01/14/2014 [facility] allergies [id number] 01/14/2014 01/14/2014 [facility] allergies [id number] 01/14/2014 01/14/2014 [facility] allergies [id number] 01/14/2014 01/14/2014 [facility] allergies [id number] 01/14/2014 01/14/2014 [facility] allergies [id number] 01/14/2014 01/14/2014 [facility] allergies [id number] 01/14/2014 01/14/2014 [facility] allergies [id number] 01/14/2014 01/14/2014 [facility] allergies [id number] 01/14/2014 01/14/2014 [facility] allergies [id number] 01/14/2014 01/14/2014 [facility] allergies [id number] 01/14/2014 01/14/2014 [facility] allergies [id number] 01/14/2014 01/14/2014 [facility] Wants to see you [id number] 02/09/2016 02/09/2016 [facility] Wants to see you [id number] 02/09/2016 02/09/2016 [facility] Wants to see you [id number] 02/09/2016 02/09/2016 [facility] Wants to see you [id number] 02/09/2016 02/09/2016 [facility] Wants to see you [id number] 02/09/2016 02/09/2016 [facility] Wants to see you [id number] 02/09/2016 02/09/2016 [facility] Wants to see you [id number] 02/09/2016 02/09/2016 [facility] Wants to see you [id number] 02/09/2016 02/09/2016 [facility] Wants to see you [id number] 02/09/2016 02/09/2016 [facility] Wants to see you [id number] 02/09/2016 02/09/2016 [facility] Wants to see you [id number] 02/09/2016 02/09/2016 [facility] Wants to see you [id number] 02/09/2016 02/09/2016 [facility] Wants to see you [id number] 02/09/2016 02/09/2016 [facility] allergies [id number] 02/10/2016 02/10/2016 [facility], [facility] allergies [id number] 02/10/2016 02/10/2016 [facility] allergies [id number] 02/10/2016 02/10/2016 [facility] allergies [id number] 02/10/2016 02/10/2016 [facility], [facility] allergies [id number] 02/10/2016 02/10/2016 [facility] allergies [id number] 02/10/2016 02/10/2016 [facility] allergies [id number] 02/10/2016 02/10/2016 [facility] allergies [id number] 02/10/2016 02/10/2016 [facility] allergies [id number] 02/10/2016 02/10/2016 [facility] allergies [id number] 02/10/2016 02/10/2016 [facility] allergies [id number] 02/10/2016 02/10/2016 [facility] allergies [id number] 02/10/2016 02/10/2016 [facility] allergies [id number] 02/17/2016 02/17/2016 [facility], [facility] allergies [id number] 02/17/2016 02/17/2016 [facility], [facility] allergies [id number] 02/17/2016 02/17/2016 [facility] allergies [id number] 02/17/2016 02/17/2016 [facility], [facility] allergies [id number] 02/17/2016 02/17/2016 [facility] allergies [id number] 02/17/2016 02/17/2016 [facility], [facility] allergies [id number] 02/17/2016 02/17/2016 [facility] allergies [id number] 02/17/2016 02/17/2016 [facility] allergies [id number] 02/17/2016 02/17/2016 [facility] allergies [id number] 02/17/2016 02/17/2016 [facility], [facility] allergies [id number] 02/17/2016 02/17/2016 [facility] [id number] 02/19/2016 02/19/2016 [facility] allergies [id number] 02/19/2016 02/19/2016 [facility] allergies [id number] 02/19/2016 02/19/2016 [facility] allergies [id number] 02/19/2016 02/19/2016 [facility] allergies [id number] 02/19/2016 02/19/2016 [facility] allergies [id number] 02/19/2016 02/19/2016 [facility], [facility] allergies [id number] 02/19/2016 02/19/2016 [facility] allergies [id number] 02/19/2016 02/19/2016 [facility] Skin concerns [id number] 02/24/2016 02/24/2016 [facility] Skin concerns [id number] 02/24/2016 02/24/2016 [facility] Skin concerns [id number] 02/24/2016 02/24/2016 [facility] Skin concerns [id number] 02/24/2016 02/24/2016 [facility] Skin concerns [id number] 02/24/2016 02/24/2016 [facility] Skin concerns [id number] 02/24/2016 02/24/2016 [facility] Skin concerns [id number] 02/24/2016 02/24/2016 [facility] Skin concerns [id number] 02/24/2016 02/24/2016 [facility] Swelling [id number] 03/08/2016 03/08/2016 [facility] Swelling [id number] 03/08/2016 03/08/2016 [facility] Swelling [id number] 03/08/2016 03/08/2016 [facility] Swelling [id number] 03/08/2016 03/08/2016 [facility] Swelling [id number] 03/08/2016 03/08/2016 [facility] Swelling [id number] 03/08/2016 03/08/2016 [facility] Swelling [id number] 03/08/2016 03/08/2016 [facility] Swelling [id number] 03/08/2016 03/08/2016 [facility] Swelling [id number] 03/08/2016 03/08/2016 [facility] Swelling [id number] 03/08/2016 03/08/2016 [facility] allergies [id number] 03/08/2016 03/08/2016 [facility] allergies [id number] 03/08/2016 03/08/2016 [facility] allergies [id number] 03/08/2016 03/08/2016 [facility] allergies [id number] 03/08/2016 03/08/2016 [facility] allergies [id number] 03/08/2016 03/08/2016 [facility] allergies [id number] 03/08/2016 03/08/2016 [facility] allergies [id number] 03/08/2016 03/08/2016 [facility] allergies [id number] 03/08/2016 03/08/2016 [facility] allergies [id number] 03/08/2016 03/08/2016 [facility] Waiting for call back [id number] 03/11/2016 03/11/2016 [facility] Waiting for call back [id number] 03/11/2016 03/11/2016 [facility] Waiting for call back [id number] 03/11/2016 03/11/2016 [facility] Waiting for call back [id number] 03/11/2016 03/11/2016 [facility] Waiting for call back [id number] 03/11/2016 03/11/2016 [facility] Waiting for call back [id number] 03/11/2016 03/11/2016 [facility] allergies [id number] 03/22/2016 03/22/2016 [facility] allergies [id number] 03/22/2016 03/22/2016 [facility] allergies [id number] 03/22/2016 03/22/2016 [facility] allergies [id number] 03/22/2016 03/22/2016 [facility] allergies [id number] 03/22/2016 03/22/2016 [facility] Other [id number] 03/22/2016 03/22/2016 [facility] Other [id number] 03/22/2016 03/22/2016 [facility] Other [id number] 03/22/2016 03/22/2016 [facility] Other [id number] 03/22/2016 03/22/2016 [facility], [facility] Waiting for call back [id number] 04/01/2016 04/01/2016 [facility], [facility] Waiting for call back [id number] 04/01/2016 04/01/2016 [facility], [facility] Waiting for call back [id number] 04/01/2016 04/01/2016 [facility], [facility] Payment [id number] 04/01/2016 04/01/2016 [facility], [facility] Payment [id number] 04/01/2016 04/01/2016 [facility], [facility] allergies [id number] 04/01/2016 04/01/2016 [facility] Procedures Procedure Code Date Perfomer Comments Source
--- OUTSIDE RECORDS SUMMARY | 2018-08-11 08:03 | XMS REPORT ---
Author Author Yulia Carrington [facility] eClinicalWorks Address Unknown Phone Unavailable Care Team Providers Care Postal Carrier Name Role Phone Yulia Carrington Unavailable Encounters Encounter Location Date allergies [facility], [facility] February 17, 2016 Swelling [facility], [facility] March 08, 2016 allergies [facility], [facility] March 08, 2016 Skin concerns [facility], [facility] February 24, 2016 allergies [facility], [facility] January 14, 2014 Other [facility], [facility] March 22, 2016 Wants to see you [facility], [facility] February 09, 2016 Waiting for call back [facility], [facility] April 01, 2016 allergies [facility], [facility] February 10, 2016 allergies [facility], [facility] March 22, 2016 allergies [facility], [facility] February 19, 2016 Waiting for call back [facility], [facility] March 11, 2016 Problems Problem Type Condition ICD-9 Code Onset Dates Condition Status Problem Allergic contact dermatitis due to drugs in contact with skin L23.3 Active Problem Allergic contact dermatitis due to cosmetics L23.2 Active Problem Unspecified adverse effect of drug or medicament, initial encounter T88.7XXA Active Problem Rash and other nonspecific skin eruption R21 Active Problem Pruritus, unspecified L29.9 Active Problem Anaphylactic reaction due to shellfish (crustaceans), subsequent encounter T78.02XD Active Problem Anaphylactic reaction due to shellfish (crustaceans), initial encounter T78.02XA Active Social History Social History Element Qualifiers Date Reported Occupation/School (grade): . [employer] April 01, 2016 Type of chloe in bedroom . [employer] April 01, 2016 Window coverings in bedroom . Drapes, Wood blinds April 01, 2016 Home sliding door? . Yes April 01, 2016 Hobbies . Working Out,playing bingo April 01, 2016 HVAC . Central air and heat, Ceiling Fan or Box Fan April 01, 2016 Home water damage? . No April 01, 2016 Bedroom furniture: . Box spring mattress April 01, 2016 Age of your home: . 51-75 years April 01, 2016 Increased allergy sx: animals? . No April 01, 2016 Pets: . none April 01, 2016 Secondary tobacco exposure? . No April 01, 2016 Tobacco Use: . Are you a:: never smoker April 01, 2016 Summary Purpose eClinicalWorks Submission
--- OUTSIDE RECORDS SUMMARY | 2018-08-11 08:03 | XMS REPORT ---
Author Author Yulia Carrington [facility] eClinicalWorks Address Unknown Phone Unavailable Care Team Providers Care Gas Singer Name Role Phone Yulia Carrington Unavailable Encounters Encounter Location Date allergies [facility], [facility] February 17, 2016 Swelling [facility], [facility] March 08, 2016 allergies [facility], [facility] March 08, 2016 Skin concerns [facility], [facility] February 24, 2016 allergies [facility], [facility] January 14, 2014 Wants to see you [facility], [facility] February 09, 2016 allergies [facility], [facility] February 10, 2016 allergies [facility], [facility] March 22, 2016 allergies [facility], [facility] February 19, 2016 Waiting for call back [facility], [facility] March 11, 2016 Payment [facility], [facility] April 01, 2016 Other [facility], [facility] March 22, 2016 Waiting for call back [facility], [facility] April 01, 2016 Problems Problem Type Condition ICD-9 Code [...]
--- OUTSIDE RECORDS SUMMARY | 2018-08-11 08:03 | XMS REPORT ---
Author Author [facility] Address Unknown Phone Unavailable Care Team Providers Care Tool And Die Assembler Name Role Phone VICK SOLORZANO Unavailable Unavailable ALEXANDRIA FERNANDEZ Unavailable Unavailable Boby LEES Unavailable Unavailable Problems This patient has no known problems. Allergies, Adverse Reactions, Alerts This patient has no known allergies or adverse reactions. Medications This patient has no known medications. Results Test Description Test Time Test Comments Text Results Atomic Results Result Comments ABDOMEN-1VIEW (B) 2018-07-27 23:04:00 [place] [address] Patient Name: TAMY RODRÍGUEZ MR #: [id number] : 1960 Age/Sex: 58/F Req #: [id number] Adm Physician: Ordered by: VICK SOLORZANO MD Report #: [id number] Location: [facility] Room/Bed: Procedure: [id number] DX/ABDOMEN-1VIEW (KU) Exam Date: 07/27/18 Exam Time: 1700 REPORT STATUS: Signed EXAM: ABDOMEN-1VIEW (KUB), supine INDICATION: Gross hematuria COMPARISON: KUB February 09, 2018 FINDINGS: LINES/TUBES: None BOWEL PATTERN: No evidence for obstruction. SOFT TISSUES: No abnormal calcifications. BONES: No acute findings. IMPRESSION: Normal abdominal x-ray. Signed by: Dr. Gema Sterling M.D. on 07/27/2018 11:09 PM Dictated By: GEMA STERLING MD 08 Transcribed By: SHANTI on 07/27/182308 COPY TO: VICK SOLORZANO MD ABDOMEN-1VIEW (KUB) [place] [address] Patient Name: TAMY RODRÍGUEZ MR #: [id number] : 1960 Age/Sex: 57/F Req #: [id number] Adm Physician: Ordered by: VICK SOLORZANO MD Report #: [id number] Location: [facility] Room/Bed: Procedure: [id number] DX/ABDOMEN-1VIEW (KUB) Exam Date: 02/09/18 Exam Time: 1345 REPORT STATUS: Signed PROCEDURE: X-RAY ABDOMEN - KUB COMPARISON: CT abdomen/pelvis 11/05/17. INDICATIONS: CALCULUS OF KIDNEY FINDINGS: Bowel gas pattern: Unremarkable. There is barium outlining a diverticulum in the descending colon. No dilated bowel loops. Calcifications: No calcifications over the renal shadows or along the expected course of the ureters. The punctate calculi in the lower pole left kidney on CT are not vi sible by x-ray. No pelvic calcifications. Organomegaly: None. Bones/soft tissues: Unremarkable. CONCLUSION: No renal calculi. Dictated by: Huey Hernandez M.D. on 02/09/2018 at 14:46 Electronically approved by: Huey Hernandez M.D. on 02/09/2018 at 14:46 Dictated By: HUEY HERNANDEZ MD 45 Transcribed By: BHAVIK on 02/09/181445 COPY TO: VICK SOLORZANO MD UPPER GI W/SMALL BOW [place] [address] Patient Name: TAMY RODRÍGUEZ MR #: [id number] : 1960 Age/Sex: 57/F Req #: [id number] Adm Physician: Ordered by: ALEXANDRIA FERNANDEZ MD Report #: [id number] Location: DX Room/Bed: Procedure: [id number] DX/UPPER GI W/SMALL BOW Exam Date: 11/28/17 Exam Time: 0720 REPORT STATUS: Signed PROCEDURE: X-RAY UPPER GI SERIES WITH SMALL BOWEL FOLLOW-THROUGH COMPARISON: None. INDICATIONS: UPPER ABDOMINAL PAIN FINDINGS: The patient was given air crystals, thick barium and thin barium to drink in upright and prone positions. Multiple images of the esophagus, stomach and duodenum were obtained. The patient was given additional barium to drink and sequential images of the abdomen were obtained through 2 hours. Spot images of the small bowel and terminal ileum were then obtained. The esophagus is normal in appearance without evidence of dysmotility, stricture or mucosal irregularity. There is gastroesophageal reflux. The stomach is normal without evidence of intrinsic mucosal or extrinsic abnormality. Duodenal bulb is normal. There is a moderate sized duodenal diverticulum from the second portion of the duodenum measuring 2.3 cm. Small bowel motility and caliber are normal. There is no evidence of mass or mucosal abnormality. The terminal ileum is normal. Fluoroscopy time: 2.6 minutes Total dose: 170.77 mGy CONCLUSION: 1. Mild amount of gastroesophageal reflux. 2. Moderate size duodenal diverticulum. 3. Small bowel follow-through is normal. Junior Gay D.O. Dictated by: Junior Gay D.O. on 11/28/2017 at 13:15 Electronically approved by: Junior Gay D.O. on 11/28/2017 at 13:15 Dictated By: JUNIOR GAY DO 14 Transcribed By: BHAVIK on 11/28/171314 COPY TO: ALEXANDRIA FERNANDEZ MD CT ABDOMEN/PELVIS WO [place] [address] Patient Name: TAMY RODRÍGUEZ MR #: [id number] : 1960 Age/Sex: 57/F Req #: [id number] Adm Physician: Ordered by: VENKATA FU LEAD DATABASE ADMINISTRATOR Report #: [id number] Location: ER Room/Bed: Procedure: [id number] CT/CT ABDOMEN/PELVIS WO Exam Date: 11/05/17 Exam Time: 5 REPORT STATUS: Signed EXAM: CT Abdomen and Pelvis WITHOUT contrast INDICATION: Flank pain, suspicious for stone COMPARISON: 09/30/2017 TECHNIQUE: Abdomen and pelvis were scanned utilizing a multidetector helical scanner from the lung base to the pubic symphysis without administration of IV contrast. Absence of intravenous contrast decreases sensitivity for detection of focal lesions and vascular pathology. Coronal and sagittal reformations were obtained. Stone protocol is performed. IV CONTRAST: None. ORAL CONTRAST: None RADIATION DOSE: Total DLP: 575.83 mGy*cm Estimated effective dose: (DLP x 0.015 x size factor) mSv COMPLICATIONS: None FINDINGS: LINES and TUBES: None. LOWER THORAX: Unremarkable HEPATOBILIARY: No focal hepatic lesions. No bili kathleen ductal dilation. GALLBLADDER: No radio-opaque stones or sludge. No wall thickening. SPLEEN: No splenomegaly. PANCREAS: No focal masses or ductal dilatation. ADRENALS: No adrenal nodules KIDNEYS/URETERS: No hydronephrosis. No cystic or solid mass lesions. Punctate calcific densities in the inferior pole of the right kidney best seen on series 2, image 44. The left renal collecting system appear unremarkable GI TRACT: No abnormal distention, wall thickening, or evidence of bowel obstruction. Appendix is not clearly identified. There is however no fat stranding or adenopathy in the right lower quadrant to suggest appendicitis. PELVIC ORGANS/BLADDER: Unremarkable. LYMPH NODES: No lymphadenopathy. VESSELS: Unremarkable. PERITONEUM / RETROPERITONEUM: No free air or fluid. BONES: There are mild degenerative changes in the thoracolumbar spine. SOFT TISSUES: Left breast nodule at approximately 6:00 medial inferior quadrant . IMPRESSION: 1. Punctate stones in the inferior renal collecting system of the right kidney. No hydronephrosis. These findings are stable since prior examination 2. Left breast nodule. Correlation with most recent mammogram and breast ultrasound is recommended Signed by: Dr. Augustin Colin M.D. on 11/05/2017 10:48 PM Dictated By: AUGUSTIN MENDOZA MD 47 Transcribed By: SHANTI on 11/05/172247 COPY TO: VENKATA FU LEAD DATABASE ADMINISTRATOR CHEST SINGLE (PORTABLE) [place] [address] Patient Name: TAMY RODRÍGUEZ MR #: [id number] : 1960 Age/Sex: 57/F Req #: [id number] Adm Physician: Ordered by: VENKATA FU LEAD DATABASE ADMINISTRATOR Report #: [id number] Location: ER Room/Bed: Procedure: [id number] DX/CHEST SINGLE (PORTABLE) Exam Date: 11/05/17 Exam Time: 1910 REPORT STATUS: Signed EXAMINATION: CHEST SINGLE (PORTABLE) INDICATION: Left chest pain COMPARISON: 06/16/2016 FINDINGS: TUBES and LINES: None. LUNGS: Lungs are well inflated. Lungs are clear. There is no evidence of pneumonia or pulmonary edema. PLEURA: No pleural effusion or pneumothorax. HEART AND MEDIASTINUM: The cardiomediastinal silhouette is unremarkable. BONES AND SOFT TISSUES: No acute osseous lesion. Soft tissues are unremarkable. UPPER ABDOMEN: No free air under the diaphragm. IMPRESSION: No acute thoracic abnormality. Signed by: Dr. Augustin Colin M.D. on 11/05/2017 8:06 PM Dictated By: AUGUSTIN MENDOZA MD 05 Transcribed By: SHANTI on 11/05/172005 COPY TO: VENKATA FU LEAD DATABASE ADMINISTRATOR US GALLBLADDER [place] [address] Patient Name: TAMY RODRÍGUEZ MR #: [id number] : 1960 Age/Sex: 57/F Req #: [id number] Adm Physician: Ordered by: VENKATA FU LEAD DATABASE ADMINISTRATOR Report #: [id number] Location: ER Room/Bed: Procedure: [id number] US/US GALLBLADDER Exam Date: Exam Time: REPORT STATUS: Signed EXAM: Right Upper Quadrant Ultrasound INDICATION: Abdominal pain COMPARISON: None. TECHNIQUE: Transverse and longitudinal images of the right upper abdomen were obtained. FINDINGS: Liver: Size: 18.6 cm in the right midclavicular line, large Appearance: Increased echogenicity, smooth contour Mass: No focal masses Gallbladder: Stones/Sludge: None Wall: 0.2 cm Appearance: No wall thickening, pericholecystic fluid or hydrops. Sonographic Soto's Sign: Negative Bile Ducts: Intrahepatic Ducts: No dilatation Extrahepatic Ducts: Common bile duct measures 0.8 cm, prominent Pancreas: Visualized portions of the pancreatic head, neck and proximal body are normal. Kidneys: Length: Right 11.7 cm Echogenicity: Normal Collecting System: No hydronephrosis Stone: None C yst/Mass: None Vessels: Aorta: Visualized portions are normal Inferior Vena Cava: Visualized portions are normal Main Portal Vein: 0.9 cm, normal size with hepatopetal flow. Free Fluid: No ascites or pleural effusion IMPRESSION: 1. Hepatomegaly and diffuse hepatic steatosis. 2. Prominent CBD measuring 0.8 cm. Correlation with bilirubin levels is recommended Signed by: Dr. Augustin Colin M.D. on 11/05/2017 9:49 PM Dictated By: AUGUSTIN MENDOZA MD 48 Transcribed By: SHANTI on 11/05/172148 COPY TO: VENKATA FU LEAD DATABASE ADMINISTRATOR CT ABDOMEN/PELVIS WO [place] [address] Patient Name: TAMY RODRÍGUEZ MR #: [id number] : 1960 Age/Sex: 57/F Req #: [id number] Adm Physician: Ordered by: VICK SOLORZANO MD Report #: [id number] Location: CT Room/Bed: Procedure: [id number] CT/CT ABDOMEN/PELVIS WO Exam Date: 09/30/17 Exam Time: 1335 REPORT STATUS: Signed PROCEDURE: CT ABDOMEN AND PELVIS WITHOUT CONTRAST TECHNIQUE: The abdomen and pelvis were scanned utilizing a multidetector helical scanner from the diaphragm to the lesser trochanter after the oral administration of water. No IV contrast was administered per renal stone protocol. Coronal and sagittal multiplanar reformations were obtained. COMPARISON: Patients [facility], CT, CT ABDOMEN/PELVIS , 06/22/2017, 9:02. INDICATIONS: RENAL STONES, LEFT FLANK PAIN FINDINGS: ABSENCE OF INTRAVENOUS CONTRAST DECREASES SENSITIVITY FOR DETECTION OF FOCAL LESIONS AND VASCULAR PATHOLOGY. LOWER THORAX: Lung bases are clear. HEPATOBILIARY: Mild hepatic steatosis with fatty sparing surrounding the gallbladder fossa. No focal lesions. No intrahepatic biliary ductal dilation. Common bile duct measures 1.0 cm at the paul hepatis and 7 mm at the pancreatic head. No radiopaque intraluminal filling defects. Gallbladder is mostly decompressed and grossly unremarkable, without radiopaque stones, wall thickening, or pericholecystic fluid. SPLEEN: No splenomegaly. PANCREAS: No focal masses or ductal dilatation. ADRENALS: No adrenal nodules. KIDNEYS/URETERS: 2-3 mm and punctate nonobstructing calculi in the inferior pole of the right kidney (series 3, images 87, and 88. No other renal or any ureteral calculi. No hydronephrosis or obstruction. No renal contour abnormalities. Stable minimal right perinephric stranding. PELVIC ORGANS: Bladder is unremarkable, without focal lesions or significant wall thickening. 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 Uterus is absent. No adnexal masses. RETROPERITONEUM: No free air or fluid. LYMPH NODES: No lymphadenopathy. VESSELS: Unremarkable. GI TRACT: No bowel dilation or evidence of obstruction. Descending and sigmoid colon diverticulosis, without diverticulitis. BONES AND SOFT TISSUES: No acute bony abnormalities. Mild degenerative disc changes in the lower thoracic and lumbosacral spine tissues are grossly unremarkable. IMPRESSION: 1. No ureteral or bladder calculi. No hydronephrosis or obstruction. 2. 2-3 mm and punctate, nonobstructing calculi in the inferior pole of the right kidney. No other renal calculi. 3. Descending and sigmoid colon diverticulosis, without diverticulitis. 4. Mild dilation of the common bile duct. No radiopaque intraluminal filling defects are noted. No cholelithiasis or CT evidence of cholecystitis. Contrast-enhanced MRI abdomen with MRCP may be obtained for further evaluation, if there is clinical concern for choledocholithiasis. Lee Manning M.D. Dictated by: Lee Manning M.D. on 09/30/2017 at 14:06 Electronically approved by: Lee Manning M.D. on 09/30/2017 at 14:06 Dictated By: LEE MANNING MD 1406 Transcribed By: BHAVIK on 09/30/17 1406 COPY TO: VICK SOLORZANO MD ABDOMEN-1VIEW (KUB) [place] [address] Patient Name: TAMY RODRÍGUEZ MR #: [id number] : 1960 Age/Sex: 57/F Req #: [id number] [facility] Physician: Ordered by: VICK SOLORZANO MD Report #: [id number] Location: [facility] Room/Bed: Procedure: [id number] DX/ABDOMEN-1VIEW (KUB) Exam Date: 09/19/17 Exam Time: 1335 REPORT STATUS: Signed PROCEDURE: X-RAY ABDOMEN - KUB COMPARISON: Abdomen one view 08/26/2017. INDICATIONS: CALCULUS OF KIDNEY FINDINGS: There is a non-obstructed bowel-gas pattern. Punctate calculus projecting over the right region of the inferior pole the right kidney. There are no calcifications projected over the left renal shadow, expected course of the ureters or bladder. There are no acute osseous abnormalities. The lung bases are clear. CONCLUSION: Stable right nephrolithiasis. Dictated by: Karime Leigh M.D. on 09/19/2017 at 14:09 Electronically approved by: Karime Leigh M.D. on 09/19/2017 at 14:09 Dictated By: KARIME LEIGH MD 08 Transcribed By: BHAVIK on 09/19/171408 COPY TO: VICK SOLORZANO MD ABDOMEN-1VIEW (KUB) [place] [address] Patient Name: TAMY RODRÍGUEZ MR #: [id number] : 1960 Age/Sex: 57/F Req #: [id number] Adm Physician: Ordered by: VICK SOLORZANO MD Report #: [id number] Location: OR Room/Bed: Procedure: [id number] DX/ABDOMEN-1VIEW (KUB) Exam Date: 08/26/17 Exam Time: 1150 REPORT STATUS: Signed PROCEDURE: X-RAY ABDOMEN - KUB COMPARISON: KUB from 04/04/2017, abdominal CT from 06/22/2017. INDICATIONS: PRE-OP, RENAL STONE FINDINGS: A tiny calcification overlying the right inferior renal pole likely corresponds to a tiny nonobstructing stone on noncontrast CT from 06/22/2017. No new calcifications project over the renal shadows, expected course of the ureters or bladder. There is a non-obstructed bowel-gas pattern. There are no acute osseous abnormalities. The lung bases are clear. CONCLUSION: Tiny right inferior pole renal calculus. Dictated by: Ramon Stokes M.D. on 08/26/2017 at 12:32 Electronically approved by: Ramon Stokes M.D. on 08/26/2017 at 12:32 Dictated By: RAMON STOKES MD 1232 Transcribed By: BHAVIK on 08/26/17 1232 COPY TO: VICK SOLORZANO MD CT ABDOMEN/PELVIS WO [facility] [address] [place] [address] Patient Name: TAMY RODRÍGUEZ MR #: [id number] : 1960 Age/Sex: 56/F Req #: [id number] Adm Physician: Ordered by: VICK SOLORZANO MD Report #: [id number] Location: CT Room/Bed: Procedure: [id number] CT/CT ABDOMEN/PELVIS WO Exam Date: 06/22/17 Exam Time: 0830 REPORT STATUS: Signed PROCEDURE: CT ABDOMEN AND PELVIS WITHOUT CONTRAST TECHNIQUE: The abdomen and pelvis were scanned utilizing a multidetector helical scanner from the diaphragm to the lesser trochanter. No IV contrast was administered as per physician request. Oral water contrast was administered. Coronal and sagittal multiplanar reformations were obtained. COMPARISON: CT abdomen and pelvis 06/17/2016. INDICATIONS: CALCULUS OF KIDNEY FINDINGS: ABSENCE OF INTRAVENOUS CONTRAST DECREASES SENSITIVITY FOR DETECTION OF FOCAL LESIONS AND VASCULAR PATHOLOGY. LOWER THORAX: Normal. HEPATOBILIARY: No focal hepatic lesions. No biliary ductal dilatation. SPLEEN: No splenomegaly. PANCREAS: No focal masses or ductal dilatation. ADRENALS: No adrenal nodules. KIDNEYS/URETERS: 3.3 mm calculus is present in the inferior pole of the right kidney, series 3 image 93. Two separate punctate calculi are present in the right kidney. Punctate calculus is present in the superior pole of the left kidney. No hydronephrosis, obstructing calculi, or solid mass lesions. Minimal bilateral perinephric soft tissue inflammatory changes. No drainable fluid collection. PELVIC ORGANS/BLADDER: Hysterectomy. Normal urinary bladder. PERITONEUM / RETROPERITONEUM: No free air or fluid. LYMPH NODES: No lymphadenopathy. VESSELS: Unremarkable. GI TRACT: No distention or wall thickening. No appendix is visualized. Scattered diverticuli are present in the descending and sigmoid colon, without adjacent soft tissue inflammatory changes. BONES AND SOFT TISSUES: Degenerative changes of the lumbar spine. IMPRESSION: 1. Bilateral nonobstructing nephrolithiasis. 2. Diverticulosis without evidence of diverticulitis. Dictated by: Karime Leigh M.D. on 06/22/2017 at 10:06 Electronically approved by: Karime Leigh M.D. on 06/22/2017 at 10:06 Dictated By: KARIME LEIGH MD 1006 Transcribed By: BHAVIK on 06/22/17 1006 COPY TO: VICK SOLORZANO MD
--- OUTSIDE RECORDS SUMMARY | 2018-08-11 08:03 | XMS REPORT ---
Author Author Yulia Carrington eClinical[employer] Address Unknown Phone Unavailable Care Team Providers Care Supervisory It Specialist Name Role Phone Yulia Carrington Unavailable Allergies, Adverse Reactions, Alerts Substance Reaction Event Type Bacitracin erythema and dry skin: contact allergy Drug Allergy Encounters Encounter Location Date allergies [facility], [facility] February 17, 2016 Swelling [facility], [facility] March 08, 2016 allergies [facility], [facility] March 08, 2016 Skin concerns [facility], [facility] February 24, 2016 allergies [facility] January 14, 2014 Wants to see you [facility], [facility] February 09, 2016 allergies [facility], [facility] February 10, 2016 allergies [facility] March 22, 2016 allergies [facility], [facility] February 19, 2016 Waiting for call back [facility] March 11, 2016 Payment [facility], [facility] April 01, 2016 allergies [facility] April 01, 2016 Other [facility] March 22, 2016 Waiting for call back [facility] April 01, 2016 Problems Problem Type Condition ICD-9 Code Onset Dates Condition Status Assessment Unspecified adverse effect of drug or medicament, initial encounter T88.7XXA Active Problem Allergic contact dermatitis due to [...] Date End Date Status Dosage Benadryl Allergy [facility] [address]-16 12.5 MG/5ML Orally every 6 hrs as needed March 08, 2016 Active 4 teaspoons Metformin HCl [facility] [address]-50 500 MG Orally Twice a day Active 1 tablet with meals Alprazolam Unknown 0 0.25mg every 4 hours Active 1 Tablet Atorvastatin Calcium [facility] [address]-54 10 MG Orally Once a day Active 1 tablet Montelukast Sodium [facility] [address]-20 10 MG Orally Once a day February 10, 2016 Active 1 tablet in the evening EpiPen 2-Olegario [facility] [address]-35 0.3 MG/0.3ML Injection March 08, 2016 Active as directed Enalapril [facility] 49192-*188-03 5 mg orally daily Active one tab HydrOXYzine HCl [facility] [address]-44 25 MG Orally every 8 hrs Active 1 tablet as needed Levothyroxine Unknown 0 50 mg Active Unknown Sandra Allergy [facility] [address]02 180 MG Orally Once OR TWICE a [...] you a:: never smoker April 01, 2016 Vital Signs Date/Time: April 01, 2016 Blood Pressure Diastolic 69 mm Hg Blood Pressure Systolic 104 mm Hg Temperature 97.5 F Height 60.45 in Cardiac Monitoring Heart Rate 82 /min Summary Purpose eClinicalWorks Submission
[2018-08-11 09:10] LABS: ANION GAP 14.9 mmol/L (8-16); BLOOD UREA NITROGEN 17 mg/dL (7-26); BUN/CREATININE RATIO 25 (6-25); CALCIUM 9.9 mg/dL (8.4-10.2); CARBON DIOXIDE 25 mmol/L (22-29); CHLORIDE 98 mmol/L (98-107); CREATININE, SERUM 0.68 mg/dL (0.57-1.11); EST GLOMERULAR FILTRATION RATE > 60 ML/MIN (60-); GLUCOSE 147 mg/dL (74-118); POTASSIUM 3.9 mmol/L (3.5-5.1); SODIUM 134 mmol/L (136-145)
[2018-08-11 11:15] VITALS: BP 135/77
--- NOTE | 2018-09-21 09:18 | Operative Report ---
DATE OF PROCEDURE: August 11, 2018 PREOPERATIVE DIAGNOSES 1. Urinary tract infections. 2. Gross hematuria. POSTOPERATIVE DIAGNOSES 1. Urinary tract infections. 2. Gross hematuria. 3. Grade 4 rectocele. 4. Mild cystocele. 5. Atrophic (senile) vaginitis. OPERATIONS PERFORMED 1. Cystourethroscopy with bilateral ureteral catheterization and retrograde ureteropyelography (separate procedure performed for the urinary tract infections and hematuria). 2. Interpretation of retrograde ureteropyelography. 3. Supervision of fluoroscopy. No radiologist present. 4. Pelvic examination under anesthesia. ANESTHESIA: General. COMPLICATIONS: None. CLINICAL SUMMARY: Tanisha Blanca is a 58-year-old woman with the above preoperative diagnoses. She is brought for the above procedures. She is aware of the risks of bleeding, infection, injury to adjacent structures, need for additional procedures, and elected to proceed. OPERATIVE PROCEDURE IN DETAIL: Appropriate consent was verified. Tanisha Blanca was properly identified and taken to the operating room and placed on the cystoscopy table in the supine position. Anesthesia was uneventfully begun. The patient was then carefully and gently repositioned in the dorsal lithotomy position with all pressure points well-padded. Her genitalia were prepared and draped in the usual sterile fashion. The 22.5-Jamaican cystoscope sheath with obturator in place was atraumatically inserted into the patient's urethra and the bladder was drained. Panendoscopy of the urinary bladder revealed some friability at the 7 o'clock position at the level of the bladder back with some blanched mucosa that is friable. There were grade 1 trabeculations. There were no tumors, no stones and no diverticula. Normally positioned and configured ureteral orifices were identified. An 8-Jamaican catheter was used to cannulate each ureter, and retrograde ureteropyelograms were performed. Interpretation of retrograde ureteropyelography: Contrast was instilled in a retrograde fashion bilaterally. There were no tumors. No stones and no diverticula. Unobstructed drainage was observed bilaterally fluoroscopically. There was medial deviation of the right proximal ureter w some rotation of the right kidney. The patient's bladder was then drained. The cystoscope was withdrawn. Pelvic examination under anesthesia revealed a grade 4 rectocele, grade 1 cystocele and atrophic (senile) vaginitis. No abnormal palpable pelvic masses could be appreciated. There were no obvious mucosal lesions. The patient was uneventfully reversed from anesthesia, and taken to the recovery room in stable condition. There were no complications to the procedure. She tolerated the procedure well. Plans will be to continue the patient's nitrofurantoin for recurrent urinary tract infections. Will continue to monitor her on a long-term basis for her history of stones. 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 Job#: [id number] [place]
== END | disposition home or self-care (01) ==
LOC: OR 07:59
PROVIDERS: ATTEND Urology
DX: N39.0 Urinary tract infection, site not specified (principal); N81.6 Rectocele; N81.10 Cystocele, unspecified; N95.2 Postmenopausal atrophic vaginitis; N32.89 Other specified disorders of bladder; Q63.2 Ectopic kidney; N39.46 Mixed incontinence; N32.81 Overactive bladder; R81 Glycosuria; Z87.442 Personal history of urinary calculi; E66.01 Morbid (severe) obesity due to excess calories; I10 Essential (primary) hypertension; E11.9 Type 2 diabetes mellitus without complications; E78.5 Hyperlipidemia, unspecified; K21.9 Gastro-esophageal reflux disease without esophagitis; F41.9 Anxiety disorder, unspecified; Z88.0 Allergy status to penicillin; Z01.810 Encounter for preprocedural cardiovascular examination; Z01.812 Encounter for preprocedural laboratory examination; Z79.84 Long term (current) use of oral hypoglycemic drugs
CPT/HCPCS: 36415 ×2; 52005; 74420; 80048 ×2; 82948; 93005; J1100; J1580; J2001; J2250; J2405; Q9967

== ENCOUNTER → 2018-10-13 | Outpatient (CLI) | payer OTHER ==
[~2018-10-13] MED LIST changes: -BELLADONNA/OPIUM 60 MG SUPP PR ONE; -DEXAMETHASONE SOD PHOS INJ 4 MG/ML VIAL ONE; -FENTANYL CITRATE/PF 100MCG/2 ML INJ ONE; -GENTAMICIN 80MG/NS 100 ML 100 ML IV ONE; +IOPAMIDOL 370 MG/ML 200 ML INFUS..BTL INJ ONE; -IOPAMIDOL 610MG/1ML 300 MG/ML VIAL IV ONE; -LIDOCAINE HCL 2% LOCAL INJ 5 ML SDV VIAL INJ ONE; -MIDAZOLAM HCL 2 MG/2 ML VIAL ONE; -ONDANSETRON HCL INJ 2 MG/ML VIAL ONE; -PROPOFOL IV EMULSION 10 MG/ML 20 ML VIAL ONE; -SEVOFLURANE INHAL SOLN 250 ML PEN BTL ONE; +SODIUM CHLORIDE 0.9% 250ML 250 ML ONE
[2018-10-13 08:32] LABS: BLOOD UREA NITROGEN 14 mg/dL (7-26); BUN/CREATININE RATIO 22 (6-25); CREATININE, SERUM 0.65 mg/dL (0.57-1.11); EST GLOMERULAR FILTRATION RATE > 60 ML/MIN (60-)
--- NOTE | 2018-10-13 09:43 | Diagnostic Imaging Report ---
EXAM: CT abdomen and pelvis with contrast INDICATION: Evaluate etiology of hematuria COMPARISON: CT Abdomen/Pelvis without contrast 11/05/2017. TECHNIQUE: Abdomen and pelvis were scanned in prone position with delayed imaging. Coronal and sagittal reformations were obtained. Hematuria protocol. IV CONTRAST: 150 mL of Isovue 370 ORAL CONTRAST: Water RADIATION DOSE: Total DLP: 1388.7 mGy*cm COMPLICATIONS: None FINDINGS: LINES and TUBES: None. LOWER THORAX: Coronary atherosclerosis. 2 mm calcified granuloma in the right lower lobe. HEPATOBILIARY: No focal hepatic lesions. No biliary ductal dilation. GALLBLADDER: No radio-opaque stones or sludge. No wall thickening. SPLEEN: No splenomegaly. PANCREAS: No focal masses or ductal dilatation. ADRENALS: No adrenal nodules KIDNEYS/URETERS: Kidneys enhance symmetrically. No hydronephrosis. No solid mass lesions. There is a 2 mm non-obstructing right lower pole renal stone. Delayed images demonstrates the majority of the ureters are opacified and no definite urothelial lesion. Subcentimeter left renal hypodensity is too small to characterize but likely represents a cyst. GI TRACT: No abnormal distention, wall thickening, or evidence of bowel obstruction. Colonic diverticulosis without CT evidence of diverticulitis. PELVIS: The bladder is opacified on delayed images and demonstrates no evidence of urothelial lesion. Status post hysterectomy. LYMPH NODES: No lymphadenopathy. VESSELS: Unremarkable. PERITONEUM / RETROPERITONEUM: No free air or fluid. BONES AND SOFT TISSUES: No acute bony findings or suspicious lytic or blastic lesions. Mild degenerative disc changes with posterior osteophyte at T12-L1 leading to mild canal narrowing. IMPRESSION: Punctate 2 mm non-obstructive right lower pole renal stone. No evidence of renal mass or urothelial lesion. Signed by: Dr. Mike Zaragoza MD on 10/13/2018 9:40 AM
== END ==
LOC: CT 07:25
PROVIDERS: ATTEND Urology
DX: R31.29 Other microscopic hematuria (principal); N20.0 Calculus of kidney
CPT/HCPCS: 36415; 74178; 82565; 84520; J7050; Q9967

== ENCOUNTER → 2019-04-17 | Outpatient (CLI) | payer OTHER ==
[~2019-04-17] MED LIST changes: -IOPAMIDOL 370 MG/ML 200 ML INFUS..BTL INJ ONE; -SODIUM CHLORIDE 0.9% 250ML 250 ML ONE
--- NOTE | 2019-04-17 13:21 | Diagnostic Imaging Report ---
Exam: KUB - 2 views Clinical History: Renal calculi Comparison: CT of 10/13/2018 Findings: Nonobstructive bowel gas pattern. No evidence of free intraperitoneal air. No evidence of abnormal calcification. No acute bony abnormality. Impression: No radiographically apparent renal calculi. Signed by: Jenny Mercado MD on 04/17/2019 1:17 PM
== END ==
LOC: RAD 11:51
PROVIDERS: ATTEND Urology
DX: N20.0 Calculus of kidney (principal)
CPT/HCPCS: 74018

== ENCOUNTER → 2019-09-25 | Outpatient (CLI) | payer OTHER ==
--- NOTE | 2019-09-25 14:20 | Diagnostic Imaging Report ---
EXAM: ABDOMEN-1VIEW (KUB) DATE: 09/25/2019 1:12 PM INDICATION: Calculus of kidney COMPARISON: .Radiograph from 04/17/2019 FINDINGS: Bowel gas pattern appears nonobstructive. No pathologically dilated loops of bowel identified. No radiographically evident calcification/stone is identified over the renal shadows. No other abnormal intra-abdominal calcification is appreciated. No acute osseous abnormalities identified. IMPRESSION: No radiographically evident renal calculus identified. Signed by: Dr. Ajit Sanchez MD on 09/25/2019 2:16 PM
== END ==
LOC: RAD 13:03
PROVIDERS: ATTEND Urology
DX: N20.0 Calculus of kidney (principal)
CPT/HCPCS: 74018

== ENCOUNTER → 2020-07-01 | Outpatient (CLI) | payer OTHER ==
--- NOTE | 2020-07-01 12:43 | Diagnostic Imaging Report ---
EXAM: Renal Ultrasound INDICATION: ^CALCULUS OF URETER COMPARISON: None TECHNIQUE: Transverse and longitudinal images of the kidneys and bladder were obtained. FINDINGS: Right Kidney: Length: 10.9 cm Appearance: Normal echogenicity. Collecting system: No hydronephrosis Stones: None Cyst/Mass: None Left Kidney: Length: 12.8 cm Appearance: Normal echogenicity. Collecting system: No hydronephrosis Stones: None Cyst/Mass: None Bladder: Unremarkable. Bilateral ureteral jets are visualized. Incidentally noted is diffuse increased echogenicity of the liver IMPRESSION: Negative for nephrolithiasis or hydronephrosis. Incidentally noted diffuse hepatic steatosis. Signed by: Jef Gibson MD on 07/01/2020 12:40 PM
== END ==
LOC: US 11:49
PROVIDERS: ATTEND Urology
DX: N20.1 Calculus of ureter (principal)
CPT/HCPCS: 76770

== ENCOUNTER 2020-11-03 11:48 | Emergency (ER) | payer BC, OTHER ==
[~2020-11-03] VITALS: Ht 154.9 cm; Wt 74.8 kg
[2020-11-03] MEDS ORDERED: ASPIRIN 81 MG CHEW TAB PO STA (12:18)
[2020-11-03 12:30] LABS: BASOPHILS # (AUTO) 0.1 (0.0-0.1); BASOPHILS % 0.7 % (0.0-1.0); EOSINOPHILS # (AUTO) 0.1 (0.0-0.4); EOSINOPHILS % 1.4 % (0.0-6.0); HEMATOCRIT 42.3 % (34.2-44.1); HEMOGLOBIN 14.1 g/dL (12.0-16.0); LYMPHOCYTES # (AUTO) 2.6 (1.0-3.2); MEAN CORPUSCULAR HGB CONC 33.3 g/dL (31-35); MONOCYTES # (AUTO) 0.9 (0.2-0.8); MONOCYTES % 8.3 % (4.4-11.3); NEUTROPHILS # (AUTO) 6.6 (2.1-6.9); PLATELET COUNT 289 x10e3/uL (140-360); RED BLOOD COUNT 4.86 x10e6/uL (3.6-5.1); RED CELL DISTRIBUTION WIDTH 13.8 % (11.7-14.4)
[2020-11-03 12:33] LABS: INR 0.99; PROTHROMBIN TIME 13.7 seconds (11.9-14.5)
[2020-11-03 12:34] LABS: PARTIAL THROMBOPLASTIN TIME 31.2 seconds (23.8-35.5)
[2020-11-03 12:42] LABS: ALANINE AMINOTRANSFERASE 27 IU/L (0-55); ALBUMIN 3.6 g/dL (3.5-5.0); ALBUMIN/GLOBULIN RATIO 1.1 (0.8-2.0); ALKALINE PHOSPHATASE 83 IU/L (40-150); ANION GAP 16.5 mmol/L (8-16); BLOOD UREA NITROGEN 10 mg/dL (7-26); BUN/CREATININE RATIO 15 (6-25); CARBON DIOXIDE 23 mmol/L (22-29); CHLORIDE 102 mmol/L (98-107); CREATINE KINASE 35 IU/L (29-168); CREATININE, SERUM 0.67 mg/dL (0.57-1.11); EST GLOMERULAR FILTRATION RATE > 60 ML/MIN (60-); GLUCOSE 209 mg/dL (74-118); MAGNESIUM 1.4 MG/DL (1.3-2.1); POTASSIUM 3.5 mmol/L (3.5-5.1); SODIUM 138 mmol/L (136-145)
[2020-11-03] MEDS ORDERED: KETOROLAC TROMETHAMINE 30 MG/ML VIAL IV STA (12:46)
[2020-11-03] MEDS ORDERED: IBUPROFEN600 MG PO (14:01)
== END 2020-11-03 14:50 | disposition home or self-care (01) ==
LOC: ER 11:57
DX: M94.0 Chondrocostal junction syndrome [Tietze] (principal); I10 Essential (primary) hypertension; E11.65 Type 2 diabetes mellitus with hyperglycemia; E78.5 Hyperlipidemia, unspecified; F41.9 Anxiety disorder, unspecified; Z11.52 Encounter for screening for COVID-19; F17.210 Nicotine dependence, cigarettes, uncomplicated
CPT/HCPCS: 36415; 71045; 80053; 82550; 82553; 83735; 83880; 84484; 85025; 85610; 85730; 93005; 99284; J1885; U0002

== ENCOUNTER 2021-11-28 12:30 | Emergency (ER) | payer BC, OTHER ==
[~2021-11-28] VITALS: Ht 154.9 cm; Wt 74.8 kg
[~2021-11-28 12:30] MED LIST changes: +IBUPROFEN600 MG PO
[2021-11-28 15:05] VITALS: BP 143/84
== END 2021-11-28 15:06 | disposition home or self-care (01) ==
LOC: ER 12:39
DX: S00.83XA Contusion of other part of head, initial encounter (principal); R51.9 Headache, unspecified; W01.0XXA Fall on same level from slipping, tripping and stumbling without subsequent striking against object, initial encounter; Y93.01 Activity, walking, marching and hiking; Y92.008 Other place in unspecified non-institutional (private) residence as the place of occurrence of the external cause; I10 Essential (primary) hypertension; E11.9 Type 2 diabetes mellitus without complications; E78.5 Hyperlipidemia, unspecified; F41.9 Anxiety disorder, unspecified
CPT/HCPCS: 70450; 99283

== ENCOUNTER 2024-06-09 02:54 | Emergency (ER) | payer BC, MEDICARE ==
[~2024-06-09] VITALS: Ht 152.4 cm; Wt 63.0 kg
[2024-06-09] MEDS ORDERED: PREDNISONE 20 MG TAB PO STA (03:01)
[2024-06-09 03:04] VITALS: PULSE 85; RESP 18; TEMP 97.9
[2024-06-09] MEDS: DIPHENHYDRAMINE HCL 25 MG CAP PO STA (03:12)
[2024-06-09] MEDS: FAMOTIDINE 20 MG TAB PO STA (03:12)
[2024-06-09] MEDS: DEXAMETHASONE SOD PHOS 10 MG/1 ML VIAL IM STA (03:12)
[2024-06-09] MEDS ORDERED: PREDNISONE20 MG PO (03:18)
[2024-06-09] MEDS ORDERED: PEPCID20 MG PO (03:18)
[2024-06-09 03:50] VITALS: BP 128/82; PULSE 78; RESP 16; TEMP 98.8; O2SAT 100
== END 2024-06-09 03:52 | disposition home or self-care (01) ==
LOC: ER 03:00
DX: R21 Rash and other nonspecific skin eruption (principal); I10 Essential (primary) hypertension; E11.9 Type 2 diabetes mellitus without complications; E78.5 Hyperlipidemia, unspecified; F41.9 Anxiety disorder, unspecified
CPT/HCPCS: 99283; J1100

== ENCOUNTER 2025-01-08 14:15 | Emergency (ER) | payer MEDICARE ==
[~2025-01-08] VITALS: Ht 154.9 cm; Wt 63.0 kg
[~2025-01-08 14:15] MED LIST changes: +PEPCID20 MG PO; +PREDNISONE20 MG PO
[2025-01-08 16:19] LABS: BILIRUBIN,URINE NEGATIVE (NEGATIVE); CLARITY,URINE CLOUDY (CLEAR); COLOR,URINE YELLOW (YELLOW); GLUCOSE, URINE 1+ (NEGATIVE); KETONES,URINE NEGATIVE (NEGATIVE); LEUKOCYTE ESTERASE ,URINE MODERATE (NEGATIVE); NITRITE,URINE POSITIVE (NEGATIVE); PH,URINE 5.5 (5 - 7); PROTEIN,URINE DIPSTICK 1+ (NEGATIVE); URINE UROBILINOGEN 0.2 mg/dL (0.2 - 1)
[2025-01-08 16:22] LABS: BACTERIA,URINE MANY /HPF; BASOPHILS # (AUTO) 0.1 (0.0-0.1); BASOPHILS % 0.7 % (0.0-1.0); EOSINOPHILS # (AUTO) 0.2 (0.0-0.4); EOSINOPHILS % 1.7 % (0.0-6.0); EPITHELIAL CELLS,URINE MODERATE /LPF; HEMATOCRIT 42.7 % (34.2-44.1); HEMOGLOBIN 14.5 g/dL (12.0-16.0); LYMPHOCYTES # (AUTO) 3.2 (1.0-3.2); MEAN CORPUSCULAR HEMOGLOBIN 29.9 pg (28-32); MONOCYTES # (AUTO) 0.9 (0.2-0.8); MONOCYTES % 8.4 % (4.4-11.3); NEUTROPHILS # (AUTO) 6.1 (2.1-6.9); NEUTROPHILS % 57.9 % (38.7-80.0); PLATELET COUNT 274 x10e3/uL (140-360); RBC,URINE 0-5 /HPF (0-5); RED BLOOD COUNT 4.85 x10e6/uL (3.6-5.1); RED CELL DISTRIBUTION WIDTH 13.4 % (11.7-14.4); WBC,URINE (MAN) >50 /HPF (0-5); WHITE BLOOD COUNT 10.45 x10e3/uL (4.8-10.8)
[2025-01-08 16:44] LABS: INR 1.02
[2025-01-08 16:45] LABS: PARTIAL THROMBOPLASTIN TIME 34.2 seconds (23.8-35.5)
[2025-01-08 16:52] LABS: ALBUMIN 3.8 g/dL (3.5-5.0); ALBUMIN/GLOBULIN RATIO 1.5 (0.8-2.0); ANION GAP 15.6 mmol/L (8-16); BILIRUBIN,TOTAL 0.4 mg/dL (0.2-1.2); CALCIUM 9.1 mg/dL (8.4-10.2); CREATININE, SERUM 0.61 mg/dL (0.57-1.11); MAGNESIUM 1.6 MG/DL (1.3-2.1); POTASSIUM 3.6 mmol/L (3.5-5.1); TOTAL PROTEIN 6.3 g/dL (6.5-8.1)
[2025-01-08 16:58] LABS: TROPONIN I 0.011 ng/mL (0-0.300)
[2025-01-08] MEDS ORDERED: IOPAMIDOL 370 MG/ML 100 ML INFUS..BTL INJ ONE (17:00)
[2025-01-08] MEDS: ONDANSETRON HCL INJ 2MG/ML 2ML 2 MG/ML VIAL IV STA (17:36)
[2025-01-08] MEDS: KETOROLAC TROMETHAMINE 30 MG/ML VIAL IV STA (17:36)
[2025-01-08] MEDS: SODIUM CHLORIDE 0.9% 1000ML 1,000 ML IV STA (17:37)
[2025-01-08] MEDS: CEFTRIAXONE 2 GM in SODIUM CHLORIDE 0.9% 100 ML IV ONE (18:26)
[2025-01-08] MEDS: Morphine 2mg Syringe 2 MG/ML SYR IV STA ×2 (18:26→18:40)
[2025-01-08] MEDS ORDERED: CEFDINIR300 MG PO (19:32)
[2025-01-08] MEDS ORDERED: ONDANSETRON ODT4 MG PO (19:32)
[2025-01-08] MEDS ORDERED: DICYCLOMINE HCL20 MG PO (19:32)
[2025-01-08 19:37] VITALS: PULSE 72; RESP 18; TEMP 98.6; O2SAT 99
== END 2025-01-08 19:52 | disposition home or self-care (01) ==
LOC: ER 15:48
DX: R10.11 Right upper quadrant pain (principal); N39.0 Urinary tract infection, site not specified; N20.0 Calculus of kidney; R11.2 Nausea with vomiting, unspecified; E11.65 Type 2 diabetes mellitus with hyperglycemia; E78.5 Hyperlipidemia, unspecified; K76.0 Fatty (change of) liver, not elsewhere classified
CPT/HCPCS: 36415; 74177; 76705; 80053; 81001; 82550; 83690; 83735; 84484; 85025; 85610; 85730; 87086; 87186; 93005; 99284; J0696; J1885; J2270; J2405; J2470; J7030; J7050; Q9967